=== PATIENT | male | born 1950 | race Caucasian/White ===

== ENCOUNTER 2018-10-11 12:36 | Emergency (ER) | payer OTHER, MEDICARE, SELFPAY ==
[2018-10-11 12:49] VITALS: BP 136/91; PULSE 85; RESP 22; TEMP 37.7; O2SAT 94; BMI 34.2
--- NOTE | 2018-10-11 12:53 | DI.RAD.S_ITS ---
PROCEDURE: XR CHEST 2V INDICATIONS: near syncope; fever, chills and vomiting for 24-48hrs TECHNIQUE: 2 views of the chest were acquired. COMPARISON: None. FINDINGS: Surgical changes and devices: None. Lungs and pleura: Lungs are clear. No pleural effusions or pneumothorax. Mediastinum: Mediastinal contours are normal. Heart size is normal. Bones and chest wall: No suspicious bony abnormalities. Soft tissues appear unremarkable. IMPRESSION: No acute cardiopulmonary disease process. Dictated by: Qing Burgos MD, PhD on 10/11/2018 at 13:40 Approved by: Qing Burgos MD, PhD on 10/11/2018 at 13:41
[2018-10-11] MEDS: SODIUM CHLORIDE 0.9% 1,000 ML 1000 ML IV (12:58)
[2018-10-11 13:08] VITALS: BP 141/72; PULSE 79; RESP 23; O2SAT 95
--- NOTE | 2018-10-11 13:10 | PC.NURSE ---
pt ambulated in stable gait from bathroom to WC and WC to bed after returning from Xray. Pt denies dizziness and reports feeling better at this time.
--- NOTE | 2018-10-11 13:22 | PC.NURSE ---
Pt denies chest pain, sob, urinary sx, abd pain, coughing, irregular hr, palpitation prior the near syncope. Spouse reports sudden onset of near syncope shortly after the zofran administration.
[2018-10-11 13:29] LABS: Bacteria Urine None Seen
[2018-10-11 13:34] LABS: Add Manual Diff / Slide Review NO; Basophils Absolute Auto 0 /uL (0-100); Basophils Percent Auto 0.2 % (0-2); Eosinophils Absolute Auto 0 /uL (0-450); Hematocrit 43.3 % (41-53); Hemoglobin 15.5 g/dL (13.5-17.5); Lymphocytes Absolute Auto 400 /uL (1100-4500); Lymphocytes Percent Auto 5.3 % (25-40); Mean Corpuscular HGB Conc 35.8 % (30-36); Mean Corpuscular Hemoglobin 32.6 PG (26-34); Mean Corpuscular Volume 91.1 fL (80-100); Monocytes Absolute Auto 600 /uL (0-900); Monocytes Percent Auto 9.7 % (3-14); Neutrophils Absolute Auto 5600 /uL (1500-7000); Neutrophils Percent Auto 84.8 % (50-75); Platelet Count 178 X10^3/uL (150-400); Red Blood Cell Count 4.75 X10^6/uL (4.5-5.9); Red Cell Distribution Width 12.9 % (11.6-14.8); White Blood Cell Count 6.6 X10^3/uL (4.5-11.0)
[2018-10-11 13:48] LABS: Alanine Aminotransferase 26 IU/L (21-72); Albumin Globulin Ratio 1.3 (1.0-2.8); Alkaline Phosphatase 61 U/L (38-126); Aspartate Aminotransferase 22 IU/L (17-59); BUN Creatinine Ratio 17.5 (6-22); Bilirubin Total 0.9 mg/dL (0.2-1.3); Blood Urea Nitrogen 14 mg/dL (9-20); Calcium 8.7 mg/dL (8.4-10.2); Carbon Dioxide 31 mmol/L (22-32); Chloride 98 mmol/L (98-107); Creatine Kinase 63 U/L (55-170); Estimated Glomerular Filt Rate > 60.0 mL/min (>60); Globulin 3.1 g/dL (1.7-4.1); Glucose 137 mg/dL (80-110); HEMOLYSIS < 15 (0-50); Potassium 4.1 mmol/L (3.4-5.1); Sodium 137 mmol/L (137-145); Total Protein 7.1 g/dL (6.3-8.2)
[2018-10-11 13:49] LABS: Amorphous Sediment Urine 1+; Culture Indicated Urine Cult Not Indicated; RBC Urine 1-5/HPF (0-5/HPF); Squamous Epithelial Cell Urine 0-1 /HPF (0-5/HPF); WBC Urine 0-1/HPF (0-5/HPF)
[2018-10-11 13:59] LABS: Troponin I < 0.012 ng/mL (0.01-0.034)
[2018-10-11 14:30] VITALS: BP 129/74; PULSE 87; RESP 21; O2SAT 92
--- NOTE | 2018-10-11 14:47 | PC.NURSE ---
Pt reports feeling well and ready to go home. Denies nausea at this time and reports able to get some rest while in ER.
[2018-10-11 15:00] VITALS: BP 136/79; PULSE 84; RESP 18; O2SAT 95
[2018-10-11 15:30] VITALS: BP 143/77; PULSE 87; RESP 21; O2SAT 94
--- NOTE | 2018-10-11 15:47 | ED.SYNCOPE ---
HPI - Syncope General Chief Complaint: Syncope Stated Complaint: Near Syncope Time Seen by Provider: 10/11/18 15:08 Source: patient and EMS Mode of arrival: EMS Limitations: no limitations History of Present Illness HPI narrative: This is a 68-year-old male comes to the emergency department with complaint of chills and nausea that started yesterday during the morning. 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 He states he would have waves of vomiting that would settle and then recur about 2 hours later. He has had normal bowel movements, no abdominal pain, no chest pain or shortness of breath. No diarrhea or constipation. His last bowel movement was yesterday morning. He has been having flatus regularly since. No urinary issues. He has not had similar symptoms in the past. He will little bit of mild back pain but he states once he got out of bed he had been lying down for a long time but felt better. Patient saw his primary care today, his 1st blood pressure was 120/70. They gave him a Zofran ODT and while he was standing he has felt lightheaded, he sat down sense that he was told that his eyes rolled back in his head. Patient's blood pressure was 95/70. He does have a history of hypertension, he did take his blood pressure medications today. I had a surgery with appendectomy. He does not smoke tobacco, occasional alcohol but none recently and no illicit. [facility] is his primary care but he was seen by Dr. Gould today. Related Data Home Medications Medication Instructions Recorded Confirmed aspirin 81 mg PO DAILY 10/11/18 10/11/18 clonidine HCl 0.3 mg PO BID 10/11/18 10/11/18 felodipine 10 mg PO DAILY 10/11/18 10/11/18 hydrochlorothiazide 25 mg PO DAILY 10/11/18 10/11/18 lisinopril 40 mg PO DAILY 10/11/18 10/11/18 rosuvastatin 5 mg PO QPM 10/11/18 10/11/18 Allergies Allergy/AdvReac Type Severity Reaction Status Date / Time No Known Drug Allergies Allergy Verified 10/11/18 12:57 Review of Systems Review of Systems ROS Unobtainable: All systems reviewed & are unremarkable except as noted in HPI and below Constitutional Denies body ache(s), Reports chills (yesterday), Denies fever(s), Denies headache(s), Denies lethargy and Denies weakness ENT Ears, Nose, Mouth, and Throat: Denies headache(s) Cardiovascular Denies chest pain, Reports syncope (or near syncope), Denies edema, Reports lightheadedness, Denies palpitations, Denies dyspnea and Denies dyspnea on exertion Respiratory Denies chest congestion, Denies cough, Denies dyspnea and Denies dyspnea on exertion Gastrointestinal Gastrointestinal: Denies abdominal pain, Denies change in bowel habits, Denies constipation, Denies diarrhea, Reports nausea (resolved now.), Reports vomiting (resolved now.) and Reports other (normal flatus) Genitourinary Denies hematuria, Denies flank pain, Denies urinary frequency, Denies urinary hesitancy, Denies urinary incontinence and Denies urinary urgency Musculoskeletal Reports back pain (mild, improved when he got out of bed) Integumentary/Breasts Denies rash Neurologic Reports syncope (or near syncope), Denies headache(s) and Denies weakness Endocrine Denies palpitations [facility] Medical History (Updated 10/11/18 @ 16:13 by Laurie Jenkins DO) HTN (hypertension) (Chronic) Surgical History (Updated 10/11/18 @ 16:05 by Laurie Jenkins DO) Hx of appendectomy (Chronic) Social History (Updated 10/11/18 @ 16:05 by Laurie Jenkins DO) Smoking Status: Never smoker alcohol intake: current substance use type: does not use Social History (Updated 10/11/18 @ 16:05 by Laurie Jenkins DO) Smoking Status: Never smoker alcohol intake: current substance use type: does not use Exam Narrative Exam Narrative: GEN: well nourished, well appearing male, alert and oriented x 3, patient appears to be in no acute distress. HEENT: Atraumatic, pupils are equal round reactive to light, extraocular movements are intact, nares are clear. Throat is clear without any exudates, erythema, tonsillar enlargement or uvular deviation HEART: Regular rate and rhythm without murmur, clicks, rubs. No carotid bruits, pulses are equal in upper and lower extremities LUNGS:Lungs clear to auscultation, no wheezes, rales, crackles, chest moves symmetrically ABD:bowel sounds normal, soft, non-tender, no guarding, rebound, rigidity, no masses noted, no hepatosplenomegaly :No CVA tenderness MSCL: Non-tender, no muscle atrophy, muscles strength 5/5 upper and lower extremities, full range of motion, normal gait NEURO:CN 2-12 intact, sensation normal. Initial Vital Signs Initial Vital Signs: Vital Signs Temperature 99.9 F H 10/11/18 12:49 Pulse Rate 85 10/11/18 12:49 Respiratory Rate 22 10/11/18 12:49 Blood Pressure 136/91 H 10/11/18 12:49 Pulse Oximetry 94 10/11/18 12:49 Course Orders Ordered: ED Orders 10/11/18 12:53 XR chest 2V Stat EKG-12 Lead Stat 10/11/18 13:20 Complete Blood Count AUTO DIFF Stat Comprehensive Metabolic Panel Stat Lipase Stat Troponin & CK Cardiac Panel Stat Urine Microscopic Stat Discontinued Medications Sodium Chloride (Normal Saline 0.9%) 1,000 mls @ 1,000 mls/hr IV BOLUS ONE Stop: 10/11/18 13:52 Last Infusion: 10/11/18 13:52 Dose: 0 mls/hr Infusion: 10/11/18 13:01 Dose: 1,000 mls/hr Admin: 10/11/18 12:58 Dose: 1,000 mls/hr Vital Signs - 8 hr 10/11/18 12:49 10/11/18 13:08 10/11/18 14:30 Temperature 99.9 F H Pulse Rate 85 79 87 Respiratory Rate 22 23 21 Blood Pressure 136/91 H Blood Pressure [Left Arm] 141/72 H 129/74 Pulse Oximetry 94 95 92 10/11/18 15:00 10/11/18 15:30 10/11/18 16:00 Temperature Pulse Rate 84 87 93 H Respiratory Rate 18 21 27 H Blood Pressure Blood Pressure [Left Arm] 136/79 143/77 H 154/84 H Pulse Oximetry 95 94 93 MDM - Syncope Lab Data Attestation: I reviewed the patient's lab results. Result diagrams: 10/11/18 13:20 10/11/18 13:20 Lab Results 10/11/18 10/11/18 10/11/18 Range/Units 13:20 13:20 13:20 WBC 6.6 (4.5-11.0) X10^3/uL RBC 4.75 (4.5-5.9) X10^6/uL Hgb 15.5 (13.5-17.5) g/dL Hct 43.3 (41-53) % MCV 91.1 (80-100) fL MCH 32.6 (26-34) PG MCHC 35.8 (30-36) % RDW 12.9 (11.6-14.8) % Plt Count 178 (150-400) X10^3/uL Neut % (Auto) 84.8 H (50-75) % Lymph % (Auto) 5.3 L (25-40) % [place] % (Auto) 9.7 (3-14) % Eos % (Auto) 0.0 L (2-4) % Baso % (Auto) 0.2 (0-2) % Neut # (Auto) 5600 (7556-5758) /uL Lymph # (Auto) 400 L (6964-2930) /uL [place] # (Auto) 600 (0-900) /uL Eos # (Auto) 0 (0-450) /uL Baso # (Auto) 0 (0-100) /uL Sodium 137 (137-145) mmol/L Potassium 4.1 (3.4-5.1) mmol/L Chloride 98 (98-107) mmol/L Carbon Dioxide 31 (22-32) mmol/L BUN 14 (9-20) mg/dL Creatinine 0.80 (0.66-1.25) mg/dL Estimated GFR > 60.0 (>60) mL/min BUN/Creatinine Ratio 17.5 (6-22) Glucose 137 H (80-110) mg/dL Calcium 8.7 (8.4-10.2) mg/dL Total Bilirubin 0.9 (0.2-1.3) mg/dL AST 22 (17-59) IU/L ALT 26 (21-72) IU/L Alkaline Phosphatase 61 (38-126) U/L Total Creatine Kinase 63 (55-170) U/L CK-MB (CK-2) TNP CK-MB (CK-2) Rel Index TNP Troponin I < 0.012 (0.01-0.034) ng/mL Total Protein 7.1 (6.3-8.2) g/dL Albumin 4.0 (3.5-5.0) g/dL Globulin 3.1 (1.7-4.1) g/dL Albumin/Globulin Ratio 1.3 (1.0-2.8) Lipase (23-300) U/L Urine RBC 1-5/hpf (0-5/HPF) Urine WBC 0-1/hpf (0-5/HPF) Ur Squamous Epith Cells 0-1 /hpf (0-5/HPF) Amorphous Sediment 1+ Urine Bacteria None seen (None) Ur Culture Indicated? Cult not indicated 10/11/18 Range/Units 13:20 WBC (4.5-11.0) X10^3/uL RBC (4.5-5.9) X10^6/uL Hgb (13.5-17.5) g/dL Hct (41-53) % MCV (80-100) fL MCH (26-34) PG MCHC (30-36) % RDW (11.6-14.8) % Plt Count (150-400) X10^3/uL Neut % (Auto) (50-75) % Lymph % (Auto) (25-40) % [place] % (Auto) (3-14) % Eos % (Auto) (2-4) % Baso % (Auto) (0-2) % Neut # (Auto) (6076-4563) /uL Lymph # (Auto) (5369-1597) /uL [place] # (Auto) (0-900) /uL Eos # (Auto) (0-450) /uL Baso # (Auto) (0-100) /uL Sodium (137-145) mmol/L Potassium (3.4-5.1) mmol/L Chloride (98-107) mmol/L Carbon Dioxide (22-32) mmol/L BUN (9-20) mg/dL Creatinine (0.66-1.25) mg/dL Estimated GFR (>60) mL/min BUN/Creatinine Ratio (6-22) Glucose (80-110) mg/dL Calcium (8.4-10.2) mg/dL Total Bilirubin (0.2-1.3) mg/dL AST (17-59) IU/L ALT (21-72) IU/L Alkaline Phosphatase (38-126) U/L Total Creatine Kinase (55-170) U/L CK-MB (CK-2) CK-MB (CK-2) Rel Index Troponin I (0.01-0.034) ng/mL Total Protein (6.3-8.2) g/dL Albumin (3.5-5.0) g/dL Globulin (1.7-4.1) g/dL Albumin/Globulin Ratio (1.0-2.8) Lipase 17 L (23-300) U/L Urine RBC (0-5/HPF) Urine WBC (0-5/HPF) Ur Squamous Epith Cells (0-5/HPF) Amorphous Sediment Urine Bacteria (None) Ur Culture Indicated? Point of Care Testing Glucose POC 143 Urine Dip Bedside Urine Glucose Negative Bedside Urine Bilirubin - Negative Bedside Urine Ketone ++ 40 Urine Specific [place] 1.015 Bedside Urine Occult Blood +/- Bedside Urine pH 6.5 Bedside Urine Protein +/- 15 Bedside Urine Urobilinogen +/- 1mg Bedside Urine Nitrite - Negative Bedside Urine Leukocytes - Negative Esterase Imaging Data Chest x-ray: Radiologist's impression: [place] [address] XRay Report Signed Patient: Amilcar Cantor RMR#: [id number] : 1950Acct:[id number] Age/Sex: 68 / MDate of Service: 10/11/18 Loc: ED Accession Number: [id number] Procedure: XR chest 2V Ordering Provider: Laurie Jenkins D.O. PROCEDURE: XR CHEST 2V INDICATIONS: near syncope; fever, chills and vomiting for 24-48hrs TECHNIQUE: 2 views of the chest were acquired. COMPARISON: None. FINDINGS: Surgical changes and devices: None. Lungs and pleura: Lungs are clear. No pleural effusions or pneumothorax. Mediastinum: Mediastinal contours are normal. Heart size is normal. Bones and chest wall: No suspicious bony abnormalities. Soft tissues appear unremarkable. IMPRESSION: No acute cardiopulmonary disease process. Dictated by: Qing Burgos MD, PhD on 10/11/2018 at 13:40 Approved by: Qing Burgos MD, PhD on 10/11/2018 at 13:41 ECG Data Attestation: I personally reviewed and interpreted this ECG as follows: Interpretation: Sinus rhythm rate of 77 MI 157 QRS of 90 QTC of 402. No ST elevation or depression appreciated. Patient has nonspecific change. MDM Narrative Medical decision making narrative: Patient is feeling much better here in the emergency department after L fluids. EKG shows no specific changes, lab work including CBC, CMP and cardiac enzymes is normal, patient does have a left shift. Glucose is 137 Chest x-ray shows no acute findings. patient's urine did show ketones, no nitrates or leuks, patient did have some her ability in and protein. Discussed with patient I suspect he was more dehydrated, we did discuss potentially could have had a reaction to the Zofran as it was given fairly close to when he had his response. Patient was able to ambulate in the department without any issues. Plan for DC home. Discharge Plan Departure Patient Disposition: Home Clinical Impression: Syncope Discharge Date/Time: 10/11/18 17:01 Interventions: ED Discharge Assessment Last Done: 10/11/18 16:59 Instructions: DI for Syncope in Adults (Fainting) Activity Restrictions/Additional Instructions: Follow-up with your primary care in the next 2-3 days for recheck if your symptoms have not completely resolved. You may continue home medications as prescribed. Make sure your drinking plenty of fluids. Return to the emergency department for worsening symptoms, fevers greater than 100.4 F, new chest pain, abdominal pain, shortness of breath, lightheadedness or passing-out, persistent vomiting, black or bloody stools or other new or concerning symptoms. Prescriptions: No Action clonidine HCl 0.3 mg tablet 0.3 mg PO BID RF: 0 aspirin 81 mg Tablet,Delayed Release (Dr/Ec) 81 mg PO DAILY RF: 0 felodipine 10 mg tablet extended release 24 hr 10 mg PO DAILY RF: 0 hydrochlorothiazide 25 mg tablet 25 mg PO DAILY RF: 0 lisinopril 40 mg tablet 40 mg PO DAILY RF: 0 rosuvastatin 5 mg tablet 5 mg PO QPM RF: 0 Referrals: Gary Calhoun MD [Primary Care Provider] -
--- NOTE | 2018-10-11 15:52 | ED_ITS ---
HPI - Syncope General Chief Complaint: Syncope Stated Complaint: Near Syncope Time Seen by Provider: 10/11/18 15:08 Source: patient and EMS Mode of arrival: EMS Limitations: no limitations History of Present Illness HPI narrative: This is a 68-year-old male comes to the emergency department with complaint of chills and nausea that started yesterday during the morning. 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 He states he would have waves of vomiting that would settle and then recur about 2 hours later. He has had normal bowel movements, no abdominal pain, no chest pain or shortness of breath. No diarrhea or constipation. His last bowel movement was yesterday morning. He has been having flatus regularly since. No urinary issues. He has not had similar symptoms in the past. He wi ll little bit of mild back pain but he states once he got out of bed he had been lying down for a long time but felt better. Patient saw his primary care today, his 1st blood pressure was 120/70. They gave him a Zofran ODT and while he was standing he has felt lightheaded, he sat down sense that he was told that his eyes rolled back in his head. Patient's blood pressure was 95/70. He does have a history of hypertension, he did take his blood pressure medications today. I had a surgery with appendectomy. He does not smoke tobacco, occasional alcohol but none recently and no illicit. [facility] is his primary care but he was seen by Dr. Gould today. Related Data Home Medications Medication Instructions Recorded Confirmed aspirin 81 mg PO DAILY 10/11/18 10/11/18 clonidine HCl 0.3 mg PO BID 10/11/18 10/11/18 felodipine 10 mg PO DAILY 10/11/18 10/11/18 hydrochlorothiazide 25 mg PO DAILY 10/11/18 10/11/18 lisinopril 40 mg PO DAILY 10/11/18 10/11/18 rosuvastatin 5 mg PO QPM 10/11/18 10/11/18 Allergies Allergy/AdvReac Type Severity Reaction Status Date / Time No Known Drug Allergies Allergy Verified 10/11/18 12:57 Review of Systems Review of Systems ROS Unobtainable: All systems reviewed & are unremarkable except as noted in HPI and below Constitutional Denies body ache(s), Reports chills (yesterday), Denies fever(s), Denies headache(s), Denies lethargy and Denies weakness ENT Ears, Nose, Mouth, and Throat: Denies headache(s) Cardiovascular Denies chest pain, Reports syncope (or near syncope), Denies edema, Reports li ghtheadedness, Denies palpitations, Denies dyspnea and Denies dyspnea on exertion Respiratory Denies chest congestion, Denies cough, Denies dyspnea and Denies dyspnea on exertion Gastrointestinal Gastrointestinal: Denies abdominal pain, Denies change in bowel habits, Denies constipation, Denies diarrhea, Reports nausea (resolved now.), Reports vomiting (resolved now.) and Reports other (normal flatus) Genitourinary Denies hematuria, Denies flank pain, Denies urinary frequency, Denies urinary hesitancy, Denies urinary incontinence and Denies urinary urgency Musculoskeletal Reports back pain (mild, improved when he got out of bed) Integumentary/Breasts Denies rash Neurologic Reports syncope (or near syncope), Denies headache(s) and Denies weakness Endocrine Denies palpitations [facility] Medical History (Updated 10/11/18 @ 16:13 by Laurie Jenkins DO) HTN (hypertension) (Chronic) Surgical History (Updated 10/11/18 @ 16:05 by Laurie Jenkins DO) Hx of appendectomy (Chronic) Social History (Updated 10/11/18 @ 16:05 by Laurie Jenkins DO) Smoking Status: Never smoker alcohol intake: current substance use type: does not use Social History (Updated 10/11/18 @ 16:05 by Laurie Jenkins DO) Smoking Status: Never smoker alcohol intake: current substance use type: does not use Exam Narrative Exam Narrative: GEN: well nourished, well appearing male, alert and oriented x 3, patient appears to be in no acute distress. HEENT: Atraumatic, pupils are equal round reactive to light, extraocular movements are intact, nares are clear. Throat is clear without any exudates, erythema, tonsillar enlargement or uvular deviation HEART: Regular rate and rhythm without murmur, clicks, rubs. No carotid bruits, pulses are equal in upper and lower extremities LUNGS:Lungs clear to auscultation, no wheezes, rales, crackles, chest moves symmetrically ABD:bowel sounds normal, soft, non-tender, no guarding, rebound, rigidity, no masses noted, no hepatosplenomegaly :No CVA tenderness MSCL: Non-tender, no muscle atrophy, muscles strength 5/5 upper and lower extremities, full range of motion, normal gait NEURO:CN 2-12 intact, sensation normal. Initial Vital Signs Initial Vital Signs: Vital Signs Temperature 99.9 F H 10/11/18 12:49 Pulse Rate 85 10/11/18 12:49 Respiratory Rate 22 10/11/18 12:49 Blood Pressure 136/91 H 10/11/18 12:49 Pulse Oximetry 94 10/11/18 12:49 Course Orders Ordered: ED Orders 10/11/18 12:53 XR chest 2V Stat EKG-12 Lead Stat 10/11/18 13:20 Complete Blood Count AUTO DIFF Stat Comprehensive Metabolic Panel Stat Lipase Stat Troponin & CK Cardiac Panel Stat Urine Microscopic Stat Discontinued Medications Sodium Chloride (Normal Saline 0.9%) 1,000 mls @ 1,000 mls/hr IV BOLUS ONE Stop: 10/11/18 13:52 Last Infusion: 10/11/18 13:52 Dose: 0 mls/hr Infusion: 10/11/18 13:01 Dose: 1,000 mls/hr Admin: 10/11/18 12:58 Dose: 1,000 mls/hr Vital Signs - 8 hr 10/11/18 12:49 10/11/18 13:08 10/11/18 14:30 Temperature 99.9 F H Pulse Rate 85 79 87 Respiratory Rate 22 23 21 Blood Pressure 136/91 H Blood Pressure [Left Arm] 141/72 H 129/74 Pulse Oximetry 94 95 92 10/11/18 15:00 10/11/18 15:30 10/11/18 16:00 Temperature Pulse Rate 84 87 93 H Respiratory Rate 18 21 27 H Blood Pressure Blood Pressure [Left Arm] 136/79 143/77 H 154/84 H Pulse Oximetry 95 94 93 MDM - Syncope Lab Data Attestation: I reviewed the patient's lab results. Result diagrams: 10/11/18 13:20 10/11/18 13:20 Lab Results 10/11/18 10/11/18 10/11/18 Range/Units 13:20 13:20 13:20 WBC 6.6 (4.5-11.0) X10^3/uL RBC 4.75 (4.5-5.9) X10^6/uL Hgb 15.5 (13.5-17.5) g/dL Hct 43.3 (41-53) % MCV 91.1 (80-100) fL MCH 32.6 (26-34) PG MCHC 35.8 (30-36) % RDW 12.9 (11.6-14.8) % Plt Count 178 (150-400) X10^3/uL Neut % (Auto) 84.8 H (50-75) % Lymph % (Auto) 5.3 L (25-40) % [place] % (Auto) 9.7 (3-14) % Eos % (Auto) 0.0 L (2-4) % Baso % (Auto) 0.2 (0-2) % Neut # (Auto) 5600 (2295-0250) /uL Lymph # (Auto) 400 L (8378-0829) /uL [place] # (Auto) 600 (0-900) /uL Eos # (Auto) 0 (0-450) /uL Baso # (Auto) 0 (0-100) /uL Sodium 137 (137-145) mmol/L Potassium 4.1 (3.4-5.1) mmol/L Chloride 98 (98-107) mmol/L Carbon Dioxide 31 (22-32) mmol/L BUN 14 (9-20) mg/dL Creatinine 0.80 (0.66-1.25) mg/dL Estimated GFR > 60.0 (>60) mL/min BUN/Creatinine Ratio 17.5 (6-22) Glucose 137 H (80-110) mg/dL Calcium 8.7 (8.4-10.2) mg/dL Total Bilirubin 0.9 (0.2-1.3) mg/dL AST 22 (17-59) IU/L ALT 26 (21-72) IU/L Alkaline Phosphatase 61 (38-126) U/L Total Creatine Kinase 63 (55-170) U/L CK-MB (CK-2) TNP CK-MB (CK-2) Rel Index TNP Troponin I < 0.012 (0.01-0.034) ng/mL Total Protein 7.1 (6.3-8.2) g/dL Albumin 4.0 (3.5-5.0) g/dL Globulin 3.1 (1.7-4.1) g/dL Albumin/Globulin Ratio 1.3 (1.0-2.8) Lipase (23-300) U/L Urine RBC 1-5/hpf (0-5/HPF) Urine WBC 0-1/hpf (0-5/HPF) Ur Squamous Epith Cells 0-1 /hpf (0-5/HPF) Amorphous Sediment 1+ Urine Bacteria None seen (None) Ur Culture Indicated? Cult not indicated 10/11/18 Range/Units 13:20 WBC (4.5-11.0) X10^3/uL RBC (4.5-5.9) X10^6/uL Hgb (13.5-17.5) g/dL Hct (41-53) % MCV (80-100) fL MCH (26-34) PG MCHC (30-36) % RDW (11.6-14.8) % Plt Count (150-400) X10^3/uL Neut % (Auto) (50-75) % Lymph % (Auto) (25-40) % [place] % (Auto) (3-14) % Eos % (Auto) (2-4) % Baso % (Auto) (0-2) % Neut # (Auto) (0065-9882) /uL Lymph # (Auto) (6482-6397) /uL [place] # (Auto) (0-900) /uL Eos # (Auto) (0-450) /uL Baso # (Auto) (0-100) /uL Sodium (137-145) mmol/L Potassium (3.4-5.1) mmol/L Chloride (98-107) mmol/L Carbon Dioxide (22-32) mmol/L BUN (9-20) mg/dL Creatinine (0.66-1.25) mg/dL Estimated GFR (>60) mL/min BUN/Creatinine Ratio (6-22) Glucose (80-110) mg/dL Calcium (8.4-10.2) mg/dL Total Bilirubin (0.2-1.3) mg/dL AST (17-59) IU/L ALT (21-72) IU/L Alkaline Phosphatase (38-126) U/L Total Creatine Kinase (55-170) U/L CK-MB (CK-2) CK-MB (CK-2) Rel Index Troponin I (0.01-0.034) ng/mL Total Protein (6.3-8.2) g/dL Albumin (3.5-5.0) g/dL Globulin (1.7-4.1) g/dL Albumin/Globulin Ratio (1.0-2.8) Lipase 17 L (23-300) U/L Urine RBC (0-5/HPF) Urine WBC (0-5/HPF) Ur Squamous Epith Cells (0-5/HPF) Amorphous Sediment Urine Bacteria (None) Ur Culture Indicated? Point of Care Testing Glucose POC 143 Urine Dip Bedside Urine Glucose Negative Bedside Urine Bilirubin - Negative Bedside Urine Ketone ++ 40 Urine Specific [place] 1.015 Bedside Urine Occult Blood +/- Bedside Urine pH 6.5 Bedside Urine Protein +/- 15 Bedside Urine Urobilinogen +/- 1mg Bedside Urine Nitrite - Negative Bedside Urine Leukocytes - Negative Esterase Imaging Data Chest x-ray: Radiologist's impression: [place] [address] XRay Report Signed Patient: Amilcar Cantor RMR#: [id number] : 1950Acct:[id number] Age/Sex: 68 / MDate of Service: 10/11/18 Loc: ED Accession Number: [id number] Procedure: XR chest 2V Ordering Provider: Laurie Jenkins D.O. PROCEDURE: XR CHEST 2V INDICATIONS: near syncope; fever, chills and vomiting for 24-48hrs TECHNIQUE: 2 views of the chest were acquired. COMPARISON: None. FINDINGS: Surgical changes and devices: None. Lungs and pleura: Lungs are clear. No pleural effusions or pneumothorax. Mediastinum: Mediastinal contours are normal. Heart size is normal. Bones and chest wall: No suspicious bony abnormalities. Soft tissues appear unremarkable. IMPRESSION: No acute cardiopulmonary disease process. Dictated by: Qing Burgos MD, PhD on 10/11/2018 at 13:40 Approved by: Qing Burgos MD, PhD on 10/11/2018 at 13:41 ECG Data Attestation: I personally reviewed and interpreted this ECG as follows: Interpretation: Sinus rhythm rate of 77 [place] 157 QRS of 90 QTC of 402. No ST elevation or depression appreciated. Patient has nonspecific change. MDM Narrative Medical decision making narrative: Patient is feeling much better here in the emergency department after L fluids. EKG shows no specific changes, lab work including CBC, CMP and cardiac enzymes is normal, patient does have a left shift. Glucose is 137 Chest x-ray shows no acute findings. patient's urine did show ketones, no nitrates or leuks, patient did have some her ability in and protein. Discussed with patient I suspect he was more dehydrated, we did discuss potentially could have had a reaction to the Zofran as it was given fairly close to when he had his response. Patient was able to ambulate in the department without any issues. Plan for DC home. Discharge Plan Departure Patient Disposition: Home Clinical Impression: Syncope Discharge Date/Time: 10/11/18 17:01 Interventions: ED Discharge Assessment Last Done: 10/11/18 16:59 Instructions: DI for Syncope in Adults (Fainting) Activity Restrictions/Additional Instructions: Follow-up with your primary care in the next 2-3 days for recheck if your symptoms have not completely resolved. You may continue home medications as prescribed. Make sure your drinking plenty of fluids. Return to the emergency department for worsening symptoms, fevers greater than 100.4 F, new chest pain, abdominal pain, shortness of breath, lightheadedness or passing-out, persistent vomiting, black or bloody stools or other new or concerning symptoms. Prescriptions: No Action clonidine HCl 0.3 mg tablet 0.3 mg PO BID RF: 0 aspirin 81 mg Tablet,Delayed Release (Dr/Ec) 81 mg PO DAILY RF: 0 felodipine 10 mg tablet extended release 24 hr 10 mg PO DAILY RF: 0 hydrochlorothiazide 25 mg tablet 25 mg PO DAILY RF: 0 lisinopril 40 mg tablet 40 mg PO DAILY RF: 0 rosuvastatin 5 mg tablet 5 mg PO QPM RF: 0 Referrals: Gary Calhoun MD [Primary Care Provider] -
[2018-10-11 16:00] VITALS: BP 154/84; PULSE 93; RESP 27; O2SAT 93
[2018-10-11 16:06] LABS: Lipase 17 U/L (23-300)
--- NOTE | 2018-10-11 16:16 | PC.NURSE ---
Walked with patient around ER and he stated he felt better and no symptoms
== END 2018-10-11 17:01 | disposition home or self-care (01) ==
PROVIDERS: Emergency Provider Emergency Medicine; Family Provider Family Medicine; PCP Family Medicine
DX: R55 Syncope and collapse (principal)
CPT/HCPCS: 36415; 71046; 80053; 81003; 81015; 82550; 83690; 84484; 85025; 93005; 96360; 99285

== ENCOUNTER 2020-03-15 09:33 | Emergency (ER) | payer OTHER, MEDICARE, SELFPAY ==
[2020-03-15 09:43] VITALS: BP 168/82; PULSE 85; RESP 18; TEMP 36.9; O2SAT 97; BMI 33.5
--- NOTE | 2020-03-15 10:21 | ED_ITS ---
HPI - Extremity Problem General Chief complaint: Extremity Problem,Nontraumatic Stated complaint: knee pain cant put weight on it Time Seen by Provider: 03/15/20 10:21 Source: patient Mode of arrival: Ambulatory Limitations: no limitations History of Present Illness HPI Narrative: This is a 69-year-old male who comes into the emergency department complaint of right knee pain. Patient states he has had issues on a nd off in the past. Proximally 9 months ago he was seen by orthopedic surgery in [place], patient states he had an injection he believes it was a steroid was helpful for about 2 weeks and then was not help from from that point on. He states he was told to return if his symptoms continued but patient did not return. 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 About 9 months ago he had quite a bit of pain, he had x-rays but no additional imaging. And had several months of knee pain except for short period immediately after the steroid injection. He has not had any fevers, no redness, no warmth to the knee. He does feel like it is more swollen than the left knee. He denies any numbness or tingling. He denies any acute trauma to the knee. 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 He does take several medications for blood pressure and dyslipidemia. He did take his home bp meds today. Related Data Home Medications Medication Instructions Recorded Confirmed aspirin 81 mg PO DAILY 10/11/18 10/11/18 clonidine HCl 0.3 mg PO BID 10/11/18 10/11/18 felodipine 10 mg PO DAILY 10/11/18 10/11/18 hydrochlorothiazide 25 mg PO DAILY 10/11/18 10/11/18 lisinopril 40 mg PO DAILY 10/11/18 10/11/18 rosuvastatin 5 mg PO QPM 10/11/18 10/11/18 Allergies Allergy/AdvReac Type Severity Reaction Status Date / Time No Known Drug Allergies Allergy Verified 10/11/18 12:57 Review of Systems Review of Systems ROS Unobtainable: All systems reviewed & are unremarkable except as noted in HPI and below Patient History Medical History HTN (hypertension) (Chronic) Surgical History Hx of appendectomy (Chronic) Social History Smoking Status: Never smoker alcohol intake: current substance use type: does not use Smoking Status: Never smoker alcohol intake frequency: a few times a week Substance Use Type: does not use Exam Narrative Exam Narrative: GENERAL: Alert and oriented x three, obese, well-appearing male in mild distress HEENT: Head normocephalic, atraumatic, EOMI, pupils reactive, face symmetric, moist mucous membranes NECK: Supple, full range of motion CARDIOVASCULAR: Regular rate and rhythm without murmurs, rubs or gallops. RESPIRATORY: Breath sounds equal bilaterally, no wheezes rales or rhonchi. ABDOMEN: Soft, nontender. Normoactive bowel sounds all 4 quadrants. No guarding or rebound, rigidity, no mass EXTREMITIES: Normal range of motion but increased pain with movement, no clubbing. Mild edema right knee. No warmth or erythema is noted. Patient has discomfort with varus movement and palpation over the medial collateral ligament, no joint laxity is appreciated, compression test is negative. 2+ dorsalis pedis. Normal sensation throughout. Neurovascularly intact NEUROLOGICAL: Cranial nerves II through XII grossly intact. Moving all extremities SKIN: Warm, dry, no petechiae, no rashes or lesions. Initial Vital Signs Initial Vital Signs: Vital Signs Temperature 98.5 F 03/15/20 09:43 Pulse Rate 85 03/15/20 09:43 Respiratory Rate 18 03/15/20 09:43 Blood Pressure 168/82 H 03/15/20 09:43 Pulse Oximetry 97 03/15/20 09:43 Course Orders Ordered: ED Orders 03/15/20 10:31 XR knee RT 3V Stat Vital Signs Vital signs: Vital Signs - 8 hr 03/15/20 11:32 Pulse Rate 88 Respiratory Rate 16 Blood Pressure 160/82 H Pulse Oximetry 99 MDM - Extremity (Nontraumatic) Imaging Data Extremity x-ray #1: Attestation: I personally reviewed and interpreted this imaging study as follows: My Impression: no fx noted, degenerative changes seen. Radiologist's Impression: [address] [address] XRay Report Signed Patient: Amilcar Cantor RMR#: [id number] : 1950Acct:[id number] Age/Sex: 69 / MDate of Service: 03/15/20 Loc: ED Accession Number: [id number] Procedure: XR knee RT 3V Ordering Provider: Laurie Jenkins D.O. PROCEDURE: XR KNEE RT 3V INDICATIONS: knee pain, acute on chronic. TECHNIQUE: 3 views of the knee were acquired. COMPARISON: None. FINDINGS: Bones: No fractures or dislocations. Mild tricompartmental osteoarthritis is seen. No patellar subluxation. No suspicious bony lesions. Soft tissues: Small suprapatellar joint effusion is noted.. No suspicious soft tissue calcifications. IMPRESSION: 1. No acute right knee fracture or dislocation. Mild tricompartmental osteoarthritis. 2. Small suprapatellar joint effusion. Dictated by: Micheal Cochran M.D. on 03/15/2020 at 10:46 Approved by: Micheal Cochran M.D. on 03/15/2020 at 10:48 Discharge Plan Departure Patient Disposition: Home Clinical Impression: Knee pain, right Qualifiers: Chronicity: unspecified Qualified Code(s): M25.561 - Pain in right knee Discharge Date/Time: 03/15/20 11:32 Instructions: DI for Knee Pain Activity Restrictions/Additional Instructions: Follow-up with your orthopedic surgeon in the next 1-2 week, if you prefer an additional referral has been given. I would recommend weight-bearing as tolerated. You may take ibuprofen up to 800 mg every 8 hours as needed for pain but I recommend starting with 400 or 600 mg. To the ER for fevers, warmth or redness to the knee, rapidly worsening swelling, fevers greater 100.4 F, pain radiating up the leg or new color changes to the lower extremity such as pallor or blue discoloration, new numbness, tingling or weakness. Prescriptions: No Action clonidine HCl 0.3 mg tablet 0.3 mg PO BID RF: 0 aspirin 81 mg Tablet,Delayed Release (Dr/Ec) 81 mg PO DAILY RF: 0 felodipine 10 mg tablet extended release 24 hr 10 mg PO DAILY RF: 0 hydrochlorothiazide 25 mg tablet 25 mg PO DAILY RF: 0 lisinopril 40 mg tablet 40 mg PO DAILY RF: 0 rosuvastatin 5 mg tablet 5 mg PO QPM RF: 0 Referrals: Gary Calhoun MD [Primary Care Provider] - Carlos Kapoor MD [Physician] -
--- NOTE | 2020-03-15 10:31 | DI.RAD.S_ITS ---
PROCEDURE: XR KNEE RT 3V INDICATIONS: knee pain, acute on chronic. TECHNIQUE: 3 views of the knee were acquired. COMPARISON: None. FINDINGS: Bones: No fractures or dislocations. Mild tricompartmental osteoarthritis is seen. No patellar subluxation. No suspicious bony lesions. Soft tissues: Small suprapatellar joint effusion is noted.. No suspicious soft tissue calcifications. IMPRESSION: 1. No acute right knee fracture or dislocation. Mild tricompartmental osteoarthritis. 2. Small suprapatellar joint effusion. Dictated by: Micheal Cochran M.D. on 03/15/2020 at 10:46 Approved by: Micheal Cochran M.D. on 03/15/2020 at 10:48
[2020-03-15 11:32] VITALS: BP 160/82; PULSE 88; RESP 16; O2SAT 99
== END 2020-03-15 11:32 | disposition home or self-care (01) ==
PROVIDERS: Emergency Provider Emergency Medicine; Family Provider Family Medicine; PCP Family Medicine
DX: M25.561 Pain in right knee (principal); I10 Essential (primary) hypertension
CPT/HCPCS: 73562; 99283

== ENCOUNTER → 2020-10-15 14:41 | Outpatient (CLI) | payer OTHER, MEDICARE, SELFPAY ==
--- NOTE | 2020-10-15 | DI.ECHO.S_ITS ---
[place] +---------+ [facility] +---------+ : : [address] : : : : [id number] : : : : Phone: [phone]+ Echocardiogram Report + + :Name: DENY MERCEDES Study Date: 10/15/2020 Height: 71 in : :[facility] ReadingLocation: Weight: 245 lb : : Gender: Male BSA: 2.3 m2 : :: 1950 Age: 70 yrs BP: 154/87 mmHg: :Reason For Study: Aortic valve regurgitation : :Ordering Physician: Edouard : :Ata Rankin Performed By: Bright Shore : :Referring: EDOUARD RANKIN : + + Interpretation Summary 1) Normal left ventricular thickness, size, wall motion, and systolic function (EF 55-60%). 2) Upper normal right ventricular size with normal function. 3) Mild to moderate aortic regurgitation present. 4) Hypertension present during the study (BP 154/87mmHg). 5) Compared to the Echo done 11/28/2016, no significant change in cardiac structure. Procedure: A two-dimensional transthoracic echocardiogram with color flow and Doppler was performed. The study quality was technically adequate. Comparison is made with the echocardiogram of 11/28/2016. The patient was in sinus rhythm with heart rates between 59-68 bpm during the exam. Left Ventricle: The left ventricle is normal in size and wall thickness. Left ventricular systolic function is normal. The ejection fraction is estimated to be 55-60%. There are no focal wall motion abnormalities. Diastolic parameters suggest probable normal left ventricular diastolic function and normal filling pressures. Right Ventricle: The right ventricle is normal in size and function. Atria: Both atria are normal in size. There is no Doppler evidence for an interatrial shunt. Mitral Valve: The mitral valve is normal in structure and function. There is trace mitral regurgitation. Aortic Valve: The aortic valve is normal in structure and function. There is no aortic valve stenosis. There is mild to moderate aortic regurgitation. Tricuspid Valve: The tricuspid valve is normal in structure and function. There is mild tricuspid regurgitation. Right ventricular systolic pressure is estimated to be 28 mmHg plus the clinically estimated CVP which cannot be estimated on this exam. Pulmonic Valve: The pulmonic valve is normal in structure and function. There is mild pulmonic regurgitation. Great Vessels: The aortic root is normal size. The dimensions of the ascending aorta are normal. The inferior vena cava was not visualized. Pericardium/ Pleura There is no pericardial effusion. There is no pleural effusion. MMode/2D Measurements & Calculations LVIDd: 5.6 cm LVOT diam: 2.3 cm LVIDs: 3.8 cm Ao root diam: 3.4 cm FS: 31.2 % asc Aorta Diam: 3.3 cm IVSd: 0.88 cm LVPWd: 0.80 cm LV lovelace. diameter/BSA (cm/m^2): 2.4 LV sys. diameter/BSA (cm/m^2): 1.7 LA A2 area: 20.8 cm2 RA long axis: 4.7 cm LA A4 area: 23.0 cm2 RA area: 14.5 cm2 LA length (vol): 5.8 cm RA vol: 38.2 ml LA vol: 70.4 ml RA : 16.6 ml/m2 LA vol index: 30.6 ml/m2 RVD1 (basal): 3.9 cm Doppler Measurements & Calculations Ao V2 max: 167.8 cm/sec LVOT Max Blair: 103.9 cm/sec Ao V2 mean: 115.7 cm/sec LV V1 max P.3 mmHg Ao max P.3 mmHg LV V1 VTI: 25.7 cm Ao mean P.1 mmHg LEOPOLDO(I,D): 3.1 cm2 Ao V2 VTI: 35.0 cm LEOPOLDO(V,D): 2.6 cm2 sev ratio: 0.74 LEOPOLDO indexed to BSA (cm^2/m^2): 1.4 AI P1/2t: 514.4 msec AI dec slope: 247.1 cm/sec2 MV E max blair: 107.0 cm/sec TR max blair: 264.9 cm/sec MV A max blair: 123.6 cm/sec TR max P.1 mmHg MV E/A: 0.87 PA V2 max: 117.0 cm/sec Med Peak E' Blair: 8.6 cm/sec PA V2 mean: 84.5 cm/sec E/E' med: 12.4 PA mean P.2 mmHg Lat Peak E' Blair: 8.2 cm/sec PA pr(Accel): 41.6 mmHg E/E' lat: 13.0 E/e' average: 12.7 MV dec time: 0.28 sec SV(LVOT): 109.0 ml Reading Physician:04:10 PM
== END ==
PROVIDERS: Family Provider Family Medicine; PCP Family Medicine; Referring Provider Internal Medicine Cardiovascular Disease; Visit Provider Internal Medicine Cardiovascular Disease
DX: I08.2 Rheumatic disorders of both aortic and tricuspid valves (principal)
CPT/HCPCS: 93306

== ENCOUNTER 2021-10-10 04:05 | Emergency (ER) | payer OTHER, MEDICARE, SELFPAY ==
--- NOTE | 2021-10-10 07:02 | PC.NURSE ---
Pt arrived to ED at 0415, during computer downtime, discharged while system remained down, see downtime paper charting.
--- NOTE | 2021-10-10 07:04 | ED_ITS ---
HPI - General Adult General Stated complaint: throat obstruction History of Present Illness HPI narrative: 71M non smoker with history of hypertension presents with a chief complaint of irritation in the back of his throat and a sensation that something just isn't right.? When he lays flat he feels like something is in the back of his throat. ?He has had some nasal congestion and increased drainage but denies any pain whatsoever.? He has no chest pain or shortness of breath.? He has no fever or chills.? He denies any nausea, vomiting or diarrhea. Related Data Home Medications Medication Instructions Recorded Confirmed aspirin 81 mg tablet,delayed 81 mg PO DAILY 10/11/18 10/11/18 release clonidine HCl 0.3 mg tablet 0.3 mg PO BID 10/11/18 10/11/18 felodipine 10 mg tablet,extended 10 mg PO DAILY 10/11/18 10/11/18 release 24 hr hydrochlorothiazide 25 mg tablet 25 mg PO DAILY 10/11/18 10/11/18 lisinopril 40 mg tablet 40 mg PO DAILY 10/11/18 10/11/18 rosuvastatin 5 mg tablet 5 mg PO QPM 10/11/18 10/11/18 Allergies Allergy/AdvReac Type Severity Reaction Status Date / Time No Known Drug Allergies Allergy Verified 10/11/18 12:57 Review of Systems Review of Systems Narrative: GENERAL: Denies chills, fatigue, malaise, fever, sweats. HEENT: ?See HPI RESPIRATORY: Denies dyspnea, cough, wheezing, hemoptysis, sputum. CARDIOVASCULAR: Denies chest pain, palpitations, orthopnea, edema, GASTROINTESTINAL: Denies nausea, vomiting, abdominal pain, diarrhea, constip ation, melena. : Denies dysuria, frequency, incontinence, hematuria, urinary retention. MUSCULOSKELETAL: denies weakness, joint pain, or bony pain SKIN: Denies rash, skin lesions, or other NEUROLOGIC: Denies weakness, headache, numbness, change in speech, confusion, seizures, incoordination. PSYCHIATRIC: No concerning psychosocial issues. 12 point review of systems is negative except for those stated above Patient History Medical History (Updated 10/10/21 @ 07:09 by Matthew Sebastian DO) HTN (hypertension) Surgical History Hx of appendectomy Social History Smoking Status: Never smoker alcohol intake: current substance use type: does not use Smoking Status: Never smoker alcohol intake frequency: a few times a week Substance Use Type: does not use Exam Narrative Exam Narrative: GENERAL: [71 ] year old patient appears stated age. Well-developed patient, in mild distress. HEAD: Atraumatic. Normocephalic. EYES: Pupils equal round and reactive. Extraocular motions intact. No scleral icterus. No injection or drainage. ENT: Nose without bleeding, purulent drainage. ?Uvula moderately swollen with clear posterior pharyngeal drainage, no lymphadenopathy NECK: Trachea midline. Non tender. ?No tender lymphadenopathy CARDIOVASCULAR: Regular rate and rhythm without murmurs, gallops, or rubs. RESPIRATORY: Clear to auscultation. Breath sounds equal bilaterally. No wheezes, rales, or rhonchi.? GASTROINTESTINAL: Abdomen soft, non-tender, nondistended. EXTREMITIES: No edema or joint tenderness. BACK: Nontender without deformity or crepitance. No flank tenderness. NEURO: AOx3. SKIN: No rash or erythema of visible areas Medical Decision Making MDM Narrative Medical decision making narrative: Well-appearing gentleman in no acute distress with reassuring history and physical exam. Slightly edematous uvula likely due to posterior pharyngeal drainage, strep negative. Patient has no pain, difficulty swallowing or systemic findings. Patient given Decadron and encouraged to use [id number] antihistamines. Return precautions discussed and questions answered to his apparent satisfaction Discharge Plan Departure Patient Disposition: Home Clinical Impression: Uvulitis Activity Restrictions/Additional Instructions: *You have been diagnosed with [uvulitis] *What to do: *Please continue to take your regular medications as directed. [ ] New medication prescriptions sent to your pharmacy: [ ] [ ] New medication written as a paper prescription [ x] No new medications given *Please follow up with your primary care provider in 2-3 days, call for an appointment. Let them know you were seen in the Emergency Department and that we ask that you be seen in follow up. We will electronically transmit a record of today's note if your PCP is in our system *If you do not have a primary care provider please contact the [facility] Resource line at [phone]. They will ask some questions about your medical history and help get you set up with a doctor in the community. *Return to Emergency Department if you should have any new, worsening or concerning symptoms, such as [fever greater than 101 F, shaking chills, worsening pain, persistent vomiting or other bothersome symptoms] . Prescriptions: No Action clonidine HCl 0.3 mg tablet 0.3 mg PO BID Label Comments: TAKE 1 TABLET BY MOUTH TWICE DAILY aspirin 81 mg Tablet,Delayed Release (Dr/Ec) 81 mg PO DAILY felodipine 10 mg tablet extended release 24 hr 10 mg PO DAILY Label Comments: TAKE 1 TABLET BY MOUTH ONCE DAILY hydrochlorothiazide 25 mg tablet 25 mg PO DAILY Label Comments: TAKE 1 TABLET BY MOUTH ONCE DAILY lisinopril 40 mg tablet 40 mg PO DAILY rosuvastatin 5 mg tablet 5 mg PO QPM Referrals: Gary Calhoun MD [Primary Care Provider] -
[2021-10-10 08:29] LABS: Strep Grp A by PCR Rapid Negative (Negative)
== END 2021-10-10 05:00 | disposition home or self-care (01) ==
PROVIDERS: Emergency Provider Emergency Medicine; Family Provider Family Medicine; PCP Family Medicine
DX: K12.2 Cellulitis and abscess of mouth (principal)
CPT/HCPCS: 87651; 99281; 99282; J1100

== ENCOUNTER 2022-08-06 08:59 | Day surgery (SDC) | payer OTHER, MEDICARE, SELFPAY ==
[2022-08-06 09:56] VITALS: BP 146/74; PULSE 77; RESP 16; TEMP 36.9; O2SAT 100; BMI 27.1
[2022-08-06] MEDS: LACTATED RINGERS 1,000 ML 42 ML IV (10:05)
--- NOTE | 2022-08-06 11:16 | P.OP.COLON_ITS ---
Operative Date/Time/Diagnoses Date of procedure: 08/06/22 Pre-op diagnosis: See indication and findings Procedure & Clinicians Study performed: Colonoscopy Indications: Screening Surgeon: Wilbert Smith Procedure Notes Procedure in detail: After informed consent was obtained the patient was placed in left lateral d ecubitus position. The video colonoscope was placed in the rectum slowly advanced to distal transverse colon. Preparation was good. On slow withdrawal mucosa was carefully examined. The scope was removed. The patient tolerated procedure well. Blood loss none Complications none Sedation mac Findings 1. Poor prep with significant semi formed stool the mostly liquid. Unable to cleans enough to get a good view 2. Extensive left-sided diverticulosis with large diverticula 3. Otherwise negative colonoscopy to distal transverse colon He will be rescheduled with a 2 day preparation.
--- NOTE | 2022-08-06 11:16 | PM.PREOP ---
Pre-operative Note COVID-19 COVID-19 status: Negative Interval Note History & Physical reviewed/Exam performed by Physician: Yes Changes to H&P: No ASA Class (for procedural sedation): II
[2022-08-06 11:44] VITALS: BP 110/68; PULSE 65; RESP 18; TEMP 36.2; O2SAT 97
[2022-08-06 11:49] VITALS: BP 119/74; PULSE 65; RESP 12; O2SAT 98
[2022-08-06 11:54] VITALS: BP 120/72; PULSE 78; RESP 17; O2SAT 98
[2022-08-06 11:59] VITALS: BP 130/75; PULSE 61; RESP 14; O2SAT 98
[2022-08-06 12:01] VITALS: BP 137/78; PULSE 63; RESP 16; O2SAT 97
== END 2022-08-06 12:13 | disposition home or self-care (01) ==
PROVIDERS: Family Provider Family Medicine; PCP Internal Medicine; Referring Provider Internal Medicine Gastroenterology; Visit Provider Internal Medicine Gastroenterology
PROC: 0DJD8ZZ Inspection of Lower Intestinal Tract, Via Natural or Artificial Opening Endoscopic (ICD-10-PCS; CPT 45378; principal; 2022-08-06 10:30)
DX: Z12.11 Encounter for screening for malignant neoplasm of colon (principal); K57.30 Diverticulosis of large intestine without perforation or abscess without bleeding; Z53.09 Procedure and treatment not carried out because of other contraindication
CPT/HCPCS: 45378; J2704

== ENCOUNTER 2022-10-04 11:50 | Inpatient (IN) | payer OTHER, MEDICARE, SELFPAY ==
[2022-10-04] VITALS (14 sets, daily range): BP systolic 116–180; BP diastolic 58–80; PULSE 82–121; RESP 17–29; TEMP 36.9–37.8; O2SAT 94–98; BMI 27.1
--- NOTE | 2022-10-04 12:28 | DI.RAD.S_ITS ---
PROCEDURE: XR CHEST 1V INDICATIONS: chest pain TECHNIQUE: One view of the chest was acquired. COMPARISON: [facility], CR, XR CHEST 2V, 10/11/2018, 12:55. FINDINGS: Surgical changes and devices: None. Lungs and pleura: Right lower lobe opacity. There is likely small pleural effusion on the right. No pneumothorax. Mediastinum: Mediastinal contours appear normal. Heart size is normal. Bones and chest wall: No suspicious bony lesions. Overlying soft tissues appear unremarkable. IMPRESSION: Findings most consistent with right basilar pneumonia with adjacent pleural effusion. Recommend clinical correlation and follow-up to resolution. and follow-up to resolution. Dictated by: Kris Giordano D.O. on 10/04/2022 at 12:06 Approved by: Kris Giordano D.O. on 10/04/2022 at 12:07
[2022-10-04 13:17] LABS: INR 1.6 (0.9-1.3); Prothrombin Time 18.8 SECONDS (10.1-12.7)
[2022-10-04 13:18] LABS: Add Manual Diff / Slide Review YES; Hematocrit 45.4 % (41-53); Hemoglobin 15.5 g/dL (13.5-17.5); Mean Corpuscular HGB Conc 34.1 % (30-36); Mean Corpuscular Volume 93.8 fL (80-100); Platelet Count 191 X10^3/uL (150-400); Red Blood Cell Count 4.84 X10^6/uL (4.5-5.9); Red Cell Distribution Width 13.8 % (11.6-14.8); White Blood Cell Count 17.9 X10^3/uL (4.5-11.0)
[2022-10-04 13:20] LABS: PTT Partial Thromboplastin Tim 32 SECONDS (26-36)
[2022-10-04 13:23] LABS: Lactate (Lactic Acid) 2.3 mmol/L (0.7-2.1)
[2022-10-04 13:28] LABS: Alanine Aminotransferase 29 IU/L (<50); Albumin 4.2 g/dL (3.5-5.0); Albumin Globulin Ratio 1.3 (1.0-2.8); Alkaline Phosphatase 48 U/L (38-126); Aspartate Aminotransferase 25 IU/L (17-59); Bilirubin Total 1.8 mg/dL (0.2-1.3); Blood Urea Nitrogen 24 mg/dL (9-20); Carbon Dioxide 32 mmol/L (22-32); Chloride 95 mmol/L (98-107); Creatine Kinase 29 U/L (55-170); Estimated Glomerular Filt Rate > 60 mL/min (>60); Globulin 3.2 g/dL (1.7-4.1); Glucose 158 mg/dL (80-110); HEMOLYSIS 24 (0-50); Lipase 26 U/L (23-300); Potassium 3.9 mmol/L (3.4-5.1); Sodium 133 mmol/L (137-145); Total Protein 7.4 g/dL (6.3-8.2)
[2022-10-04 13:35] LABS: Neutrophils Absolute Manual 17363 /uL (3000-5900); RBC Morphology Normal Morphology; Total Cells Counted 100
[2022-10-04 13:37] LABS: Troponin I 0.062 ng/mL (0.01-0.034)
--- NOTE | 2022-10-04 13:59 | ED.SOB ---
HPI - SOB/Dyspnea General Chief Complaint: Weakness Stated Complaint: Blood in vomit, High HR, Sent by [facility] Time Seen by Provider: 10/04/22 13:58 Source: patient Mode of arrival: Ambulatory Limitations: no limitations History of Present Illness HPI Narrative: Patient is a 72-year-old male history of hypertension presenting today from walk-in clinic for hemoptysis and tachycardia. He actually reports that he was feeling well this week he was actually getting his camper ready to go camping however last night he developed body aches sweats chills and dry heaving. He then reports that he was coughing up half-dollar size of bright red blood. He is not on anticoagulation but does take a baby aspirin daily. Denies any abdominal pain. He reports some shortness of breath with exertion no significant peripheral edema. Related Data Home Medications Medication Instructions Recorded Confirmed aspirin 81 mg tablet,delayed 81 mg PO DAILY 10/11/18 10/04/22 release clonidine HCl 0.3 mg tablet 0.3 mg PO BID 10/11/18 10/04/22 felodipine 10 mg tablet,extended 10 mg PO DAILY 10/11/18 10/04/22 release 24 hr hydrochlorothiazide 25 mg tablet 25 mg PO DAILY 10/11/18 10/04/22 lisinopril 40 mg tablet 40 mg PO DAILY 10/11/18 10/04/22 rosuvastatin 5 mg tablet 5 mg PO QPM 10/11/18 10/04/22 amlodipine 10 mg tablet 10 mg PO DAILY 10/04/22 10/04/22 Allergies Allergy/AdvReac Type Severity Reaction Status Date / Time No Known Drug Allergies Allergy Verified 10/04/22 12:23 Review of Systems Review of Systems ROS Unobtainable: All systems reviewed & are unremarkable except as noted in HPI and below Patient History Medical History (Updated 10/04/22 @ 17:30 by Debbi Fox DO) HTN (hypertension) Surgical History Hx of appendectomy Social History household members: spouse Smoking Status: Never smoker alcohol intake: current substance use type: does not use Smoking Status: Never smoker alcohol intake frequency: a few times a week Substance Use Type: does not use Exam Initial Vital Signs Initial Vital Signs: Vital Signs Temperature 98.5 F 10/04/22 12:23 Pulse Rate 121 H 10/04/22 12:23 Respiratory Rate 22 10/04/22 12:23 Blood Pressure 137/80 10/04/22 12:23 Pulse Oximetry 95 10/04/22 12:23 Oxygen Delivery Method Room Air 10/04/22 12:23 GENERAL: Alert 72-year-old male and in no acute distress. HEENT: Head atraumatic,EOMI, pupils reactive, face symmetric, moist mucous membranes CARDIOVASCULAR: Regular rate and rhythm without murmurs, rubs or gallops. RESPIRATORY: Breath sounds equal bilaterally, no wheezes rales or rhonchi. Speaks in full sentences no difficulty ABDOMEN: Soft, nontender. Normoactive bowel sounds all 4 quadrants. No guarding or rebound. EXTREMITIES: Normal range of motion, no clubbing or edema. Neurovascularly intact NEUROLOGICAL: Alert and oriented x4.Normal gait and speech. Cranial nerves II through XII grossly intact. SKIN: Warm, dry, no laceration, no petechiae, no rashes or lesions. Course Orders Ordered: ED Orders 10/04/22 12:28 XR chest 1V Stat EKG-12 Lead Stat 10/04/22 12:30 Respiratory Panel (Film Array) Stat 10/04/22 12:45 BNP [NT-proBNP (BNP-Adult 18+)] Stat Complete Blood Count AUTO DIFF Stat Comprehensive Metabolic Panel Stat Lactate (Lactic Acid) Stat Lipase Stat Magnesium Stat PTT Partial Thromboplastin German Stat Prothrombin Time INR Stat Troponin & CK Cardiac Panel Stat 10/04/22 14:14 CT angio chest PE protocol Stat 10/04/22 14:20 Blood Culture Stat 10/04/22 16:00 Trop I [Troponin I] Stat 10/04/22 17:56 Education, smoking cessation ONGOING 10/05/22 06:00 Basic Metabolic Panel DAILY Complete Blood Count AUTO DIFF DAILY 10/06/22 06:00 Basic Metabolic Panel DAILY Complete Blood Count AUTO DIFF DAILY 10/07/22 06:00 Basic Metabolic Panel DAILY Complete Blood Count AUTO DIFF DAILY Acetaminophen (Acetaminophen 325 Mg Tablet) 650 mg PO Q6H PRN PRN Reason: Fever/Mild Pain (1-3) Amlodipine Besylate (Amlodipine 5 Mg Tablet) 10 mg PO DAILY EVELIA Aspirin (Aspirin Ec 81 Mg Tablet) 81 mg PO DAILY EVELIA Atorvastatin Calcium (Atorvastatin 20 Mg Tablet) 10 mg PO QPM EVELIA Clonidine HCl (Clonidine 0.1 Mg Tablet) 0.3 mg PO BID EVELIA Sodium Chloride (Normal Saline 0.9%) 1,000 mls @ 100 mls/hr IV CONT EVELIA Stop: 11/04/22 03:55 Last Admin: 10/04/22 19:02 Dose: 100 mls/hr Documented By: LADANF Ceftriaxone Sodium 1,000 mg/ (Sodium Chloride) 100 mls @ 200 mls/hr IV Q24H EVELIA Stop: 10/09/22 15:59 Azithromycin 500 mg/ Dextrose 250 mls @ 250 mls/hr IV Q24H EVELIA Stop: 10/07/22 16:59 Lisinopril (Lisinopril 20 Mg Tablet) 40 mg PO DAILY EVELIA Naloxone HCl (Naloxone 0.4 Mg/Ml Vial) 0.2 mg IV Q2MIN PRN PRN Reason: Opiate Reversal Discontinued Medications Aspirin (Aspirin 81 Mg Chew Tab) 324 mg PO NOW ONE Stop: 10/04/22 12:29 Last Admin: 10/04/22 14:13 Dose: 324 mg Documented By: MLTino Ceftriaxone Sodium 2,000 mg/ (Sodium Chloride) 100 mls @ 200 mls/hr IV NOW ONE Stop: 10/04/22 15:58 Last Infusion: 10/04/22 17:20 Dose: 0 mls/hr Documented By: Admin: 10/04/22 16:22 Dose: 200 mls/hr Documented By: AT Azithromycin 500 mg/ Dextrose 250 mls @ 250 mls/hr IV NOW ONE Stop: 10/04/22 15:58 Last Infusion: 10/04/22 17:55 Dose: 0 mls/hr Documented By: Admin: 10/04/22 17:23 Dose: 250 mls/hr Documented By: AURELIANO Vital Signs Vital signs: Vital Signs - 8 hr 10/04/22 12:23 10/04/22 13:30 10/04/22 14:56 Temperature 98.5 F 100.1 F H Pulse Rate 121 H 116 H 102 H Respiratory Rate 22 24 28 H Blood Pressure 137/80 124/70 153/74 H Pulse Oximetry 95 94 95 Oxygen Delivery Method Room Air Room Air Room Air 10/04/22 15:04 10/04/22 15:04 10/04/22 15:30 Temperature Pulse Rate 100 H Respiratory Rate 29 H Blood Pressure 136/70 150/71 H Pulse Oximetry 95 Oxygen Delivery Method 10/04/22 15:30 10/04/22 16:00 10/04/22 16:00 Temperature Pulse Rate 98 H 98 H Respiratory Rate 25 H 21 Blood Pressure 180/66 H Pulse Oximetry 95 95 Oxygen Delivery Method Room Air 10/04/22 16:30 10/04/22 16:30 10/04/22 17:00 Temperature Pulse Rate 97 H Respiratory Rate 27 H Blood Pressure 162/77 H 150/67 H Pulse Oximetry 96 Oxygen Delivery Method Room Air 10/04/22 17:00 10/04/22 17:30 10/04/22 17:30 Temperature Pulse Rate 104 H 101 H Respiratory Rate 25 H 24 Blood Pressure 152/71 H Pulse Oximetry 96 95 Oxygen Delivery Method Room Air Blow By Room Air MDM - SOB/Dyspnea Lab Data 10/04/22 12:45 10/04/22 12:45 Labs: Lab Results 10/04/22 10/04/22 10/04/22 Range/Units 12:30 12:45 12:45 WBC 17.9 H (4.5-11.0) X10^3/uL RBC 4.84 (4.5-5.9) X10^6/uL Hgb 15.5 (13.5-17.5) g/dL Hct 45.4 (41-53) % MCV 93.8 (80-100) fL MCH 32.0 (26-34) PG MCHC 34.1 (30-36) % RDW 13.8 (11.6-14.8) % Plt Count 191 (150-400) X10^3/uL Neut % (Auto) Not Reportable Lymph % (Auto) Not Reportable [place] % (Auto) Not Reportable Eos % (Auto) Not Reportable Baso % (Auto) Not Reportable Lymph # (Auto) Not Reportable [place] # (Auto) Not Reportable Baso # (Auto) Not Reportable Total Counted 100 Seg Neutrophils % 61.0 (38-70) % Band Neutrophils % 36.0 H (3-7) % Lymphocytes % (Manual) 1.0 L (25-45) % Monocytes % (Manual) 2.0 (2-11) % Neutrophils # (Manual) 53864 H (3206-8490) /uL RBC Morphology Normal morphology PT 18.8 H (10.1-12.7) SECONDS INR 1.6 H (0.9-1.3) APTT 32 (26-36) SECONDS Sodium (137-145) mmol/L Potassium (3.4-5.1) mmol/L Chloride (98-107) mmol/L Carbon Dioxide (22-32) mmol/L BUN (9-20) mg/dL Creatinine (0.66-1.25) mg/dL Estimated GFR (>60) mL/min BUN/Creatinine Ratio (6-22) Glucose (80-110) mg/dL Lactate (0.7-2.1) mmol/L Calcium (8.4-10.2) mg/dL Magnesium (1.6-2.3) mg/dL Total Bilirubin (0.2-1.3) mg/dL AST (17-59) IU/L ALT (<50) IU/L Alkaline Phosphatase (38-126) U/L Total Creatine Kinase (55-170) U/L CK-MB (CK-2) CK-MB (CK-2) Rel Index Troponin I (0.01-0.034) ng/mL NT-Pro-B Natriuret Pep (<125) pg/mL Total Protein (6.3-8.2) g/dL Albumin (3.5-5.0) g/dL Globulin (1.7-4.1) g/dL Albumin/Globulin Ratio (1.0-2.8) Lipase (23-300) U/L Chlamy pneumoniae PCR Not detected (Not Detect) Adenovirus (PCR) Not detected (Not Detect) B. pertussis DNA (PCR) Not detected (Not Detecte) B.parapertussis DNA PCR Not detected (Not Detecte) Coronavirus OC43 (PCR) Not detected (Not Detect) Coronavirus HKU1 (PCR) Not detected (Not Detect) Coronavirus 229E (PCR) Not detected (Not Detect) SARS-CoV-2 (PCR) Not detected (Not Detecte) Coronavirus NL63 (PCR) Not detected (Not Detect) Human Metapneumovir PCR Not detected (Not Detect) Influenza Type A (PCR) Not detected (Not Detect) Influenza Type B (PCR) Not detected (Not Detect) M. pneumoniae (PCR) Not detected (Not Detect) Parainfluenza 1 (PCR) Not detected (Not Detect) Parainfluenza 2 (PCR) Not detected (Not Detect) Parainfluenza 3 (PCR) Not detected (Not Detect) Parainfluenza 4 (PCR) Not detected (Not Detect) RSV (PCR) Not detected (Not Detect) Entero/Rhino (PCR) Not detected (Not Detect) 10/04/22 10/04/22 10/04/22 Range/Units 12:45 12:45 12:45 WBC (4.5-11.0) X10^3/uL RBC (4.5-5.9) X10^6/uL Hgb (13.5-17.5) g/dL Hct (41-53) % MCV (80-100) fL MCH (26-34) PG MCHC (30-36) % RDW (11.6-14.8) % Plt Count (150-400) X10^3/uL Neut % (Auto) Lymph % (Auto) [place] % (Auto) Eos % (Auto) Baso % (Auto) Lymph # (Auto) [place] # (Auto) Baso # (Auto) Total Counted Seg Neutrophils % (38-70) % Band Neutrophils % (3-7) % Lymphocytes % (Manual) (25-45) % Monocytes % (Manual) (2-11) % Neutrophils # (Manual) (9957-8614) /uL RBC Morphology PT (10.1-12.7) SECONDS INR (0.9-1.3) APTT (26-36) SECONDS Sodium 133 L (137-145) mmol/L Potassium 3.9 (3.4-5.1) mmol/L Chloride 95 L (98-107) mmol/L Carbon Dioxide 32 (22-32) mmol/L BUN 24 H (9-20) mg/dL Creatinine 0.89 (0.66-1.25) mg/dL Estimated GFR > 60 (>60) mL/min BUN/Creatinine Ratio 27.0 H (6-22) Glucose 158 H (80-110) mg/dL Lactate 2.3 H (0.7-2.1) mmol/L Calcium 9.0 (8.4-10.2) mg/dL Magnesium 2.0 (1.6-2.3) mg/dL Total Bilirubin 1.8 H (0.2-1.3) mg/dL AST 25 (17-59) IU/L ALT 29 (<50) IU/L Alkaline Phosphatase 48 (38-126) U/L Total Creatine Kinase 29 L (55-170) U/L CK-MB (CK-2) TNP CK-MB (CK-2) Rel Index TNP Troponin I 0.062 H (0.01-0.034) ng/mL NT-Pro-B Natriuret Pep 2160 H (<125) pg/mL Total Protein 7.4 (6.3-8.2) g/dL Albumin 4.2 (3.5-5.0) g/dL Globulin 3.2 (1.7-4.1) g/dL Albumin/Globulin Ratio 1.3 (1.0-2.8) Lipase 26 (23-300) U/L Chlamy pneumoniae PCR (Not Detect) Adenovirus (PCR) (Not Detect) B. pertussis DNA (PCR) (Not Detecte) B.parapertussis DNA PCR (Not Detecte) Coronavirus OC43 (PCR) (Not Detect) Coronavirus HKU1 (PCR) (Not Detect) Coronavirus 229E (PCR) (Not Detect) SARS-CoV-2 (PCR) (Not Detecte) Coronavirus NL63 (PCR) (Not Detect) Human Metapneumovir PCR (Not Detect) Influenza Type A (PCR) (Not Detect) Influenza Type B (PCR) (Not Detect) M. pneumoniae (PCR) (Not Detect) Parainfluenza 1 (PCR) (Not Detect) Parainfluenza 2 (PCR) (Not Detect) Parainfluenza 3 (PCR) (Not Detect) Parainfluenza 4 (PCR) (Not Detect) RSV (PCR) (Not Detect) Entero/Rhino (PCR) (Not Detect) 10/04/22 10/04/22 Range/Units 15:20 16:00 WBC (4.5-11.0) X10^3/uL RBC (4.5-5.9) X10^6/uL Hgb (13.5-17.5) g/dL Hct (41-53) % MCV (80-100) fL MCH (26-34) PG MCHC (30-36) % RDW (11.6-14.8) % Plt Count (150-400) X10^3/uL Neut % (Auto) Lymph % (Auto) [place] % (Auto) Eos % (Auto) Baso % (Auto) Lymph # (Auto) [place] # (Auto) Baso # (Auto) Total Counted Seg Neutrophils % (38-70) % Band Neutrophils % (3-7) % Lymphocytes % (Manual) (25-45) % Monocytes % (Manual) (2-11) % Neutrophils # (Manual) (5045-2920) /uL RBC Morphology PT (10.1-12.7) SECONDS INR (0.9-1.3) APTT (26-36) SECONDS Sodium (137-145) mmol/L Potassium (3.4-5.1) mmol/L Chloride (98-107) mmol/L Carbon Dioxide (22-32) mmol/L BUN (9-20) mg/dL Creatinine (0.66-1.25) mg/dL Estimated GFR (>60) mL/min BUN/Creatinine Ratio (6-22) Glucose (80-110) mg/dL Lactate 2.1 (0.7-2.1) mmol/L Calcium (8.4-10.2) mg/dL Magnesium (1.6-2.3) mg/dL Total Bilirubin (0.2-1.3) mg/dL AST (17-59) IU/L ALT (<50) IU/L Alkaline Phosphatase (38-126) U/L Total Creatine Kinase (55-170) U/L CK-MB (CK-2) CK-MB (CK-2) Rel Index Troponin I 0.074 H (0.01-0.034) ng/mL NT-Pro-B Natriuret Pep (<125) pg/mL Total Protein (6.3-8.2) g/dL Albumin (3.5-5.0) g/dL Globulin (1.7-4.1) g/dL Albumin/Globulin Ratio (1.0-2.8) Lipase (23-300) U/L Chlamy pneumoniae PCR (Not Detect) Adenovirus (PCR) (Not Detect) B. pertussis DNA (PCR) (Not Detecte) B.parapertussis DNA PCR (Not Detecte) Coronavirus OC43 (PCR) (Not Detect) Coronavirus HKU1 (PCR) (Not Detect) Coronavirus 229E (PCR) (Not Detect) SARS-CoV-2 (PCR) (Not Detecte) Coronavirus NL63 (PCR) (Not Detect) Human Metapneumovir PCR (Not Detect) Influenza Type A (PCR) (Not Detect) Influenza Type B (PCR) (Not Detect) M. pneumoniae (PCR) (Not Detect) Parainfluenza 1 (PCR) (Not Detect) Parainfluenza 2 (PCR) (Not Detect) Parainfluenza 3 (PCR) (Not Detect) Parainfluenza 4 (PCR) (Not Detect) RSV (PCR) (Not Detect) Entero/Rhino (PCR) (Not Detect) Imaging Data Chest x-ray: Radiologist's Impression: PROCEDURE:? XR CHEST 1V ? INDICATIONS:? chest pain ? TECHNIQUE:? One view of the chest was acquired.? ? COMPARISON:? [facility], XR CHEST 2V, 10/11/2018, 12:55. ? FINDINGS:? ? Surgical changes and devices:? None.? ? Lungs and pleura:? Right lower lobe opacity.? There is likely small pleural effusion on the right.? No pneumothorax.? ? Mediastinum:? Mediastinal contours appear normal.? Heart size is normal.? ? Bones and chest wall:? No suspicious bony lesions.? Overlying soft tissues appear unremarkable.? ? IMPRESSION:? ? Findings most consistent with right basilar pneumonia with adjacent pleural effusion.? Recommend clinical correlation and follow-up to resolution. and follow-up to resolution.? ? ? Dictated by: Kris Giordano D.O. on 10/04/2022 at 12:06 ? ? CT scan - chest: Radiologist's Impression: PROCEDURE:? CT ANGIO CHEST PE PROTOCOL ? INDICATIONS:? Hemoptysis, tachycardia short of breath ? TECHNIQUE:? After the administration of intravenous contrast, 2 mm thick sections acquired from the pulmonary apices to the posterior costophrenic angles.? 3-dimensional maximum intensity projection (MIP) coronal and sagittal reformats were then acquired through the thorax.? For radiation dose reduction, the following was used:? automated exposure control, adjustment of mA and/or kV according to patient size.? ? COMPARISON:? [facility], XR CHEST 1V, 10/04/2022, 12:42. ? FINDINGS:? Image quality:? Excellent.? ? Pulmonary arteries:? Pulmonary arteries are normal in size, and demonstrate no intraluminal filling defects to suggest central pulmonary embolism.? ? Lungs and pleura:? There is diffuse opacities of the right lung base extending throughout the right middle and right lower lobes with air bronchograms.? Small right-sided pleural effusion.? Central and peripheral airways are patent.? ? Mediastinum:? Heart size is normal, without pericardial effusion.? Moderate coronary vascular calcifications.? No mediastinal or hilar adenopathy by size criteria.? Multiple prominent mediastinal/hilar lymph nodes.? Thoracic aorta is normal in caliber and enhancement.? Esophagus is normal in caliber, without hiatal hernia.? ? Bones and chest wall:? No suspicious bony lesions.? Ribs and thoracic spine appear intact throughout.? Degenerative changes of the spine with anterior flowing osteophytes throughout the thoracic spine which may be seen in the setting of diffuse idiopathic skeletal hyperostosis.? Thyroid gland demonstrates a subcentimeter right thyroid lobe hypodense nodule.? No axillary or supraclavicular adenopathy.? ? Abdomen:? Visualized upper abdominal solid organs appear normal in the early arterial phase of enhancement.? ? IMPRESSION:? ? Findings most consistent with pneumonia of the right middle and right lower lobes.? There is a small right-sided pleural effusion. ? No evidence of pulmonary embolus or right heart strain. ? Moderate coronary vascular calcifications. ? Additional chronic findings as above.? ? Dictated by: Kris Giordano D.O. on 10/04/2022 at 14:20 ? ? ECG Data Interpretation: I this tachycardia rate 120 VT interval 136 QRS [address] changes Q-wave noted in lead 3 no T-wave inversion PVC noted MDM Narrative Medical decision making narrative: Patient is 72-year-old male presents today with fevers chills tachycardia hemoptysis. Concern for infectious process however with hemoptysis and tachycardia pulmonary embolism was ruled out with CT however it did confirm pneumonia with a right middle and lower lobes. No evidence of heart strain on CT however he does have increased pro BNP of 2600 and indeterminate troponin. He has frequent PVCs on the monitor and on his EKG without ischemic changes on EKG He has signs and symptoms consistent with infection, fever chills cough hemoptysis with leukocytosis of 17 with left shift and bandemia of 36%, mild elevation in lactate of 2.3 improved to 2.1. Vitals are stable without evidence of severe sepsis. He does develop fever and has known infection. At this time with evidence of pneumonia hemoptysis elevation of troponin and BNP without history coronary artery disease or CHF reasonable to admit. Dr. Hill updated on patient's symptoms test results and kindly accepts patient. Discharge Plan Departure Patient Disposition: Admitted As Inpatient Clinical Impression: Pneumonia, Congestive heart failure Admit Date/Time: 10/04/22 17:35 Admit Provider: Brook Hill
[2022-10-04 14:01] LABS: Adenovirus Not Detected (Not Detect); B. parapertussis Not Detected (Not Detecte); Bordetella pertussis Not Detected (Not Detecte); Chlamydophila pneumoniae Not Detected (Not Detect); Coronavirus 229E Not Detected (Not Detect); Coronavirus HKU1 Not Detected (Not Detect); Coronavirus NL 63 Not Detected (Not Detect); Coronavirus OC43 Not Detected (Not Detect); Human Metapneumovirus Not Detected (Not Detect); Human Rhinovirus/Enterovirus Not Detected (Not Detect); Influenza A Not Detected (Not Detect); Influenza B Not Detected (Not Detect); Mycoplasma pneumoniae Not Detected (Not Detect); Parainfluenza Virus 1 Not Detected (Not Detect); Parainfluenza Virus 2 Not Detected (Not Detect); Parainfluenza Virus 3 Not Detected (Not Detect); Parainfluenza Virus 4 Not Detected (Not Detect); Respiratory Syncytial Virus Not Detected (Not Detect); SARS- CoV-2 Not Detected (Not Detecte)
[2022-10-04] MEDS: ASPIRIN 81 MG CHEW TAB 324 MG PO (14:13)
--- NOTE | 2022-10-04 14:14 | DI.CT.S_ITS ---
PROCEDURE: CT ANGIO CHEST PE PROTOCOL INDICATIONS: Hemoptysis, tachycardia short of breath TECHNIQUE: After the administration of intravenous contrast, 2 mm thick sections acquired from the pulmonary apices to the posterior costophrenic angles. 3-dimensional maximum intensity projection (MIP) coronal and sagittal reformats were then acquired through the thorax. For radiation dose reduction, the following was used: automated exposure control, adjustment of mA and/or kV according to patient size. COMPARISON: [facility], CR, XR CHEST 1V, 10/04/2022, 12:42. FINDINGS: Image quality: Excellent. Pulmonary arteries: Pulmonary arteries are normal in size, and demonstrate no intraluminal filling defects to suggest central pulmonary embolism. Lungs and pleura: There is diffuse opacities of the right lung base extending throughout the right middle and right lower lobes with air bronchograms. Small right-sided pleural effusion. Central and peripheral airways are patent. Mediastinum: Heart size is normal, without pericardial effusion. Moderate coronary vascular calcifications. No mediastinal or hilar adenopathy by size criteria. Multiple prominent mediastinal/hilar lymph nodes. Thoracic aorta is normal in caliber and enhancement. Esophagus is normal in caliber, without hiatal hernia. Bones and chest wall: No suspicious bony lesions. Ribs and thoracic spine appear intact throughout. Degenerative changes of the spine with anterior flowing osteophytes throughout the thoracic spine which may be seen in the setting of diffuse idiopathic skeletal hyperostosis. Thyroid gland demonstrates a subcentimeter right thyroid lobe hypodense nodule. No axillary or supraclavicular adenopathy. Abdomen: Visualized upper abdominal solid organs appear normal in the early arterial phase of enhancement. IMPRESSION: Findings most consistent with pneumonia of the right middle and right lower lobes. There is a small right-sided pleural effusion. No evidence of pulmonary embolus or right heart strain. Moderate coronary vascular calcifications. Additional chronic findings as above. Dictated by: Kris Giordano D.O. on 10/04/2022 at 14:20 Approved by: Kris Giordano D.O. on 10/04/2022 at 14:25
[2022-10-04 14:24] LABS: NT-proBNP (BNP-Adult 18+) 2160 pg/mL (<125)
[2022-10-04 15:03] LABS: Reflexed Lactate in 2 Hours Y
[2022-10-04 15:39] LABS: Lactate 2HR (Lactic Acid Rflx) 2.1 mmol/L (0.7-2.1)
[2022-10-04] MEDS: cefTRIAXone 2,000 MG in SODIUM CHLORIDE 0.9% 100 ML 200 MG IV (16:22)
[2022-10-04 16:39] LABS: Troponin I 0.074 ng/mL (0.01-0.034)
[2022-10-04] MEDS: AZITHROMYCIN 500 MG in DEXTROSE 5% IN WATER 250 ML 250 MG IV (17:23)
--- NOTE | 2022-10-04 18:48 | PM.HP.1 ---
History of Present Illness History of Present Illness Chief complaint: blood in vomit, high heart rate, sent by [facility] Narrative: 72-year-old gentleman with history of hypertension, hyperlipidemia, palpitations with no clear underlying arrhythmia presented to the emergency department complaining of fevers, chills, and hemoptysis. Patient reports he did notice a ?scratchy throat? a few days ago. He notes he was planning to go camping this weekend but awoke at around midnight yesterday with shaking chills. He states they lasted about an hour. He developed significant diffuse body aches. States he had difficulty sleeping the rest of the night due to his symptoms. He states at approximately 7:00 a.m. yesterday morning he developed hemoptysis. He states he really was not coughing prior but acutely began coughing and got what he described as bright red blood with very little sputum overall. He reports that continued through the day with hemoptysis. He did not note that his sputum was otherwise colored. Took Tylenol around the clock but continued to feel generally poor. He states this morning he continued to have some hemoptysis and ultimately elected to come in to the hospital for further evaluation. 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 Did have some dry heaving today and did not take his antihypertensive medications. He denies any previous history of cardiac disease. In fact, he reports he has had a full cardiac workup. He had episodes of what he describes as ?racing heart?. Was evaluated with what he describes as a nuclear stress test which he states was negative. He states he wore an event monitor for a week with no arrhythmia identified. He believes that he had the workup in the last couple of years. He states that Dr. Rankin told him he did not have to come back for another couple of years for reassessment. Patient did not have any chest pain, tightness, or pressure. No significant shortness of breath. He did have some elevated troponins in the emergency department, but a nonischemic EKG. On arrival to the emergency department, he was initially afebrile, but shortly thereafter his temperature increased to 100.1. Initial heart rate was 121. Respiratory rate was as high as 28. Blood pressures ranged from normotensive up to 180/66. O2 saturations remained in the mid 90s in room air. Laboratories were remarkable for white blood cell count of 17.9 with a 36% bandemia. Troponin initially was 0.062 and increased to 0.074. BNP was elevated at 2160. INR was 1.6. Chemistry panel revealed a sodium of 133, potassium was normal at 3.9, BUN mildly elevated 24, creatinine 0.89, glucose mildly elevated at 158. Total bilirubin 1.8. Blood cultures are drawn and pending. Respiratory viral panel was negative. Chest x-ray revealed a right basilar pneumonia with adjacent pleural effusion. CT pulmonary angiogram was performed which revealed pneumonia of the right middle and lower lobes with a small right-sided pleural effusion. No evidence of PE or right heart strain. Moderate coronary vascular calcifications. Patient was given 2 g of IV Rocephin, 500 mg of IV azithromycin, a single aspirin and admission was recommended. Currently, patient continues to report he is feeling generally ill. No hemoptysis in the last couple of hours. No shortness of breath. He does have a light dinner at bedside and is planning to try to eat some. [facility] Medical History (Updated 10/04/22 @ 17:30 by Debbi Fox DO) HTN (hypertension) Surgical History Hx of appendectomy Social History household members: spouse Smoking Status: Never smoker alcohol intake: current substance use type: does not use Meds Home Medications and Allergies Home Medications Medication Instructions Recorded Confirmed Type aspirin 81 mg tablet,delayed 81 mg PO DAILY 10/11/18 10/04/22 History release clonidine HCl 0.3 mg tablet 0.3 mg PO BID 10/11/18 10/04/22 History felodipine 10 mg tablet,extended 10 mg PO DAILY 10/11/18 10/04/22 History release 24 hr hydrochlorothiazide 25 mg tablet 25 mg PO DAILY 10/11/18 10/04/22 History lisinopril 40 mg tablet 40 mg PO DAILY 10/11/18 10/04/22 History rosuvastatin 5 mg tablet 5 mg PO QPM 10/11/18 10/04/22 History amlodipine 10 mg tablet 10 mg PO DAILY 10/04/22 10/04/22 History Allergies Allergy/AdvReac Type Severity Reaction Status Date / Time No Known Drug Allergies Allergy Verified 10/04/22 12:23 Review of Systems Review of Systems Narrative: All other systems were reviewed negative Exam Vital Signs (past 8 hours): - 10/04/22 12:23 10/04/22 13:30 10/04/22 14:56 Temperature 98.5 F 100.1 F H Pulse Rate 121 H 116 H 102 H Respiratory Rate 22 24 28 H Blood Pressure 137/80 124/70 153/74 H Pulse Oximetry 95 94 95 Oxygen Delivery Method Room Air Room Air Room Air Oxygen Flow Rate 10/04/22 15:04 10/04/22 15:04 10/04/22 15:30 Temperature Pulse Rate 100 H Respiratory Rate 29 H Blood Pressure 136/70 150/71 H Pulse Oximetry 95 Oxygen Delivery Method Oxygen Flow Rate 10/04/22 15:30 10/04/22 16:00 10/04/22 16:00 Temperature Pulse Rate 98 H 98 H Respiratory Rate 25 H 21 Blood Pressure 180/66 H Pulse Oximetry 95 95 Oxygen Delivery Method Room Air Oxygen Flow Rate 10/04/22 16:30 10/04/22 16:30 10/04/22 17:00 Temperature Pulse Rate 97 H Respiratory Rate 27 H Blood Pressure 162/77 H 150/67 H Pulse Oximetry 96 Oxygen Delivery Method Room Air Oxygen Flow Rate 10/04/22 17:00 10/04/22 17:30 10/04/22 17:30 Temperature Pulse Rate 104 H 101 H Respiratory Rate 25 H 24 Blood Pressure 152/71 H Pulse Oximetry 96 95 Oxygen Delivery Method Room Air Blow By Room Air Oxygen Flow Rate 10/04/22 17:56 Temperature 100 F H Pulse Rate 88 Respiratory Rate 18 Blood Pressure 150/67 H Pulse Oximetry 96 Oxygen Delivery Method Oxygen Flow Rate 0 Oxygen Delivery Method Room Air Oxygen Flow Rate 0 Narrative Exam Narrative: GEN: Ill-appearing middle-aged male, Alert and oriented x3 HEENT: Normocephalic, face symmetric, pupils equal round reactive to light, extraocular movements intact, sclerae anicteric, conjunctiva clear, nares patent, oropharynx reveals an intact soft and hard palate with moist mucous membranes, dentition is fair NECK: Supple, no lymphadenopathy, thyroid without enlargement or nodularity, carotids no bruits CHEST: Respiratory excursions symmetric, diminished with crackles noted in the right base and mid lung zone, clear on the left CV: Regular rate and rhythm, no murmurs, rubs, gallops, PMI nondisplaced ABD: Soft, nontender, nondistended, bowel sounds present in all 4 quadrants, no organomegaly or masses appreciated EXTR: Warm, well perfused, no clubbing/cyanosis/edema SKIN: Warm and dry, without rash NEURO: Alert and oriented x3, grossly intact PSYCH: Mood and affect is within normal limits, judgment and insight are appropriate Objective Labs 10/04/22 12:45 10/04/22 12:45 Labs: Laboratory Results - last 24 hr 10/04/22 10/04/22 10/04/22 12:30 12:45 12:45 WBC 17.9 H RBC 4.84 Hgb 15.5 Hct 45.4 MCV 93.8 MCH 32.0 MCHC 34.1 RDW 13.8 Plt Count 191 Neut % (Auto) Not Reportable Lymph % (Auto) Not Reportable Prairie % (Auto) Not Reportable Eos % (Auto) Not Reportable Baso % (Auto) Not Reportable Lymph # (Auto) Not Reportable [place] # (Auto) Not Reportable Baso # (Auto) Not Reportable Total Counted 100 Seg Neutrophils % 61.0 Band Neutrophils % 36.0 H Lymphocytes % (Manual) 1.0 L Monocytes % (Manual) 2.0 Neutrophils # (Manual) 29565 H RBC Morphology Normal morphology PT 18.8 H INR 1.6 H APTT 32 Sodium Potassium Chloride Carbon Dioxide BUN Creatinine Estimated GFR BUN/Creatinine Ratio Glucose Lactate Calcium Magnesium Total Bilirubin AST ALT Alkaline Phosphatase Total Creatine Kinase CK-MB (CK-2) CK-MB (CK-2) Rel Index Troponin I NT-Pro-B Natriuret Pep Total Protein Albumin Globulin Albumin/Globulin Ratio Lipase Chlamy pneumoniae PCR Not detected Adenovirus (PCR) Not detected B. pertussis DNA (PCR) Not detected B.parapertussis DNA PCR Not detected Coronavirus OC43 (PCR) Not detected Coronavirus HKU1 (PCR) Not detected Coronavirus 229E (PCR) Not detected SARS-CoV-2 (PCR) Not detected Coronavirus NL63 (PCR) Not detected Human Metapneumovir PCR Not detected Influenza Type A (PCR) Not detected Influenza Type B (PCR) Not detected M. pneumoniae (PCR) Not detected Parainfluenza 1 (PCR) Not detected Parainfluenza 2 (PCR) Not detected Parainfluenza 3 (PCR) Not detected Parainfluenza 4 (PCR) Not detected RSV (PCR) Not detected Entero/Rhino (PCR) Not detected 10/04/22 10/04/22 10/04/22 12:45 12:45 12:45 WBC RBC Hgb Hct MCV MCH MCHC RDW Plt Count Neut % (Auto) Lymph % (Auto) Prairie % (Auto) Eos % (Auto) Baso % (Auto) Lymph # (Auto) [place] # (Auto) Baso # (Auto) Total Counted Seg Neutrophils % Band Neutrophils % Lymphocytes % (Manual) Monocytes % (Manual) Neutrophils # (Manual) RBC Morphology PT INR APTT Sodium 133 L Potassium 3.9 Chloride 95 L Carbon Dioxide 32 BUN 24 H Creatinine 0.89 Estimated GFR > 60 BUN/Creatinine Ratio 27.0 H Glucose 158 H Lactate 2.3 H Calcium 9.0 Magnesium 2.0 Total Bilirubin 1.8 H AST 25 ALT 29 Alkaline Phosphatase 48 Total Creatine Kinase 29 L CK-MB (CK-2) TNP CK-MB (CK-2) Rel Index TNP Troponin I 0.062 H NT-Pro-B Natriuret Pep 2160 H Total Protein 7.4 Albumin 4.2 Globulin 3.2 Albumin/Globulin Ratio 1.3 Lipase 26 Chlamy pneumoniae PCR Adenovirus (PCR) B. pertussis DNA (PCR) B.parapertussis DNA PCR Coronavirus OC43 (PCR) Coronavirus HKU1 (PCR) Coronavirus 229E (PCR) SARS-CoV-2 (PCR) Coronavirus NL63 (PCR) Human Metapneumovir PCR Influenza Type A (PCR) Influenza Type B (PCR) M. pneumoniae (PCR) Parainfluenza 1 (PCR) Parainfluenza 2 (PCR) Parainfluenza 3 (PCR) Parainfluenza 4 (PCR) RSV (PCR) Entero/Rhino (PCR) 10/04/22 10/04/22 15:20 16:00 WBC RBC Hgb Hct MCV MCH MCHC RDW Plt Count Neut % (Auto) Lymph % (Auto) Prairie % (Auto) Eos % (Auto) Baso % (Auto) Lymph # (Auto) [place] # (Auto) Baso # (Auto) Total Counted Seg Neutrophils % Band Neutrophils % Lymphocytes % (Manual) Monocytes % (Manual) Neutrophils # (Manual) RBC Morphology PT INR APTT Sodium Potassium Chloride Carbon Dioxide BUN Creatinine Estimated GFR BUN/Creatinine Ratio Glucose Lactate 2.1 Calcium Magnesium Total Bilirubin AST ALT Alkaline Phosphatase Total Creatine Kinase CK-MB (CK-2) CK-MB (CK-2) Rel Index Troponin I 0.074 H NT-Pro-B Natriuret Pep Total Protein Albumin Globulin Albumin/Globulin Ratio Lipase Chlamy pneumoniae PCR Adenovirus (PCR) B. pertussis DNA (PCR) B.parapertussis DNA PCR Coronavirus OC43 (PCR) Coronavirus HKU1 (PCR) Coronavirus 229E (PCR) SARS-CoV-2 (PCR) Coronavirus NL63 (PCR) Human Metapneumovir PCR Influenza Type A (PCR) Influenza Type B (PCR) M. pneumoniae (PCR) Parainfluenza 1 (PCR) Parainfluenza 2 (PCR) Parainfluenza 3 (PCR) Parainfluenza 4 (PCR) RSV (PCR) Entero/Rhino (PCR) Assessment & Plan Assessment & Plan narrative: 1. Sepsis Patient presents meeting criteria for sepsis with fever, tachycardia, tachypnea, leukocytosis with bandemia, and mild lactic acidosis. Etiology is pneumonia. Blood cultures pending as noted. Will be covered for community-acquired pneumonia with Rocephin and azithromycin. Follow-up lactate showed improvement at 2.1. Will continue close monitoring. I have ordered gentle IV fluids to be given for a total of 2 L, given his sepsis physiology. However he does have an elevated BNP and significant hypertensive history, so will not give typical sepsis treatment with 30 cc/kilogram. Given the rigors he had beginning early yesterday morning, I certainly would not be surprised if he is bacteremic. Noted, await culture results. 2. Right middle and lower lobe community-acquired pneumonia with small right pleural effusion Patient will be placed on Rocephin and azithromycin as noted. He did have some hemoptysis as well. He is a remote history of pneumonia some years ago. Uncertain if his pneumococcal vaccination is up to date. I have encouraged him to work on good pulmonary hygiene. Incentive spirometry has been ordered. I did stress to him that with a small pleural effusion, he can develop a parapneumonic effusion and/or empyema. Thus, improving his overall respiratory effort is imperative.Advised this might be painful and it will make him cough, but this is necessary to help improve the aeration to his right lung. He expresses understanding and agrees. He remains stable on room air. 3. Coagulopathy INR is 1.6. He is not chronically anticoagulated. Suspect this is sepsis related. We will repeat labs in the morning. 4. Elevated troponin Patient has no ischemic symptoms. Will monitor serially until they down trend. If he does have increasing troponin, will plan to perform an echocardiogram tomorrow. 5. Elevated BNP Patient has no clinical or imaging evidence of volume overload. It may be his BNP is elevated secondary to his underlying hypertension, which appears to be difficult to manage at baseline as he is on multiple medications. As noted above will gently hydrate with 2 L of fluid and monitor closely. 6. Hyperbilirubinemia Mild at 1.8. Again, suspect this is secondary to sepsis. Will repeat labs in the morning. 7. Hyperglycemia Mild. Nonfasting lab. Will check a hemoglobin A1c for completeness. 8. Hypertension Will resume amlodipine, clonidine, lisinopril. Holding hydrochlorothiazide for now given his sepsis. For unclear reasons he is also prescribed felodipine. This has been held. Code status Full Prophylaxis Low Cordelia score Disposition Admit to acute care, inpatient status Surrogate decision maker: Iva issa, spouse
[2022-10-04] MEDS: SODIUM CHLORIDE 0.9% 1,000 ML 100 ML IV (19:02)
[2022-10-04] MEDS: cloNIDine 0.1 MG TABLET 0.3 MG PO (20:19)
[2022-10-04 22:19] LABS: Troponin I 0.057 ng/mL (0.01-0.034)
[2022-10-05] VITALS (10 sets, daily range): BP systolic 87–134; BP diastolic 47–62; PULSE 66–80; RESP 16–18; TEMP 36.4–38.4; O2SAT 92–96
[2022-10-05 04:51] LABS: INR 1.3 (0.9-1.3); Prothrombin Time 14.9 SECONDS (10.1-12.7)
[2022-10-05 04:52] LABS: Add Manual Diff / Slide Review NO; Basophils Absolute Auto 0 /uL (0-100); Basophils Percent Auto 0.1 % (0-2); Eosinophils Absolute Auto 0 /uL (0-450); Eosinophils Percent Auto 0.1 % (2-4); Hemoglobin 13.5 g/dL (13.5-17.5); Lymphocytes Absolute Auto 600 /uL (1100-4500); Lymphocytes Percent Auto 4.4 % (25-40); Mean Corpuscular HGB Conc 34.6 % (30-36); Mean Corpuscular Hemoglobin 32.1 PG (26-34); Monocytes Absolute Auto 700 /uL (0-900); Monocytes Percent Auto 5.2 % (3-14); Neutrophils Absolute Auto 11800 /uL (1500-7000); Neutrophils Percent Auto 90.2 % (50-75); Platelet Count 175 X10^3/uL (150-400); Red Cell Distribution Width 13.7 % (11.6-14.8); White Blood Cell Count 13.1 X10^3/uL (4.5-11.0)
[2022-10-05 05:00] LABS: BUN Creatinine Ratio 29.6 (6-22); Blood Urea Nitrogen 24 mg/dL (9-20); Calcium 8.2 mg/dL (8.4-10.2); Carbon Dioxide 31 mmol/L (22-32); Chloride 97 mmol/L (98-107); Estimated Glomerular Filt Rate > 60 mL/min (>60); Glucose 99 mg/dL (80-110); HEMOLYSIS < 15 (0-50); Potassium 3.2 mmol/L (3.4-5.1); Sodium 131 mmol/L (137-145)
[2022-10-05 05:02] LABS: Alanine Aminotransferase 25 IU/L (<50); Albumin 2.8 g/dL (3.5-5.0); Albumin Globulin Ratio 1.2 (1.0-2.8); Alkaline Phosphatase 67 U/L (38-126); Aspartate Aminotransferase 24 IU/L (17-59); Bilirubin Total 1.1 mg/dL (0.2-1.3); Bilirubin Unconjugated 0.7 mg/dL (0.0-1.1); Globulin 2.4 g/dL (1.7-4.1); HEMOLYSIS < 15 (0-50); Total Protein 5.2 g/dL (6.3-8.2)
[2022-10-05] MEDS: SODIUM CHLORIDE 0.9% 1,000 ML 100 ML IV (05:06)
[2022-10-05 05:12] LABS: Troponin I 0.039 ng/mL (0.01-0.034)
[2022-10-05] MEDS: LACTOBACILLUS ACIDOPHILUS TABLET 1 EACH PO ×3 (09:49→16:29)
[2022-10-05] MEDS: ASPIRIN EC 81 MG TABLET PO (09:49)
[2022-10-05] MEDS: ACETAMINOPHEN 325 MG TABLET 650 MG PO (09:49)
--- NOTE | 2022-10-05 11:06 | PC.NURSE ---
Assess- Patient is alert and oriented x4, he states that he is feeling better than yesterday. He does have a temp of 101 and tylenol given. Patient took his own meds from home this morning. Explained to patient that he should not bring his own meds and that we have the medications that he needs here. He was more than understanding. BS cta, on ra. IVF infusing, when this bag is finished he will be heplocked.
--- NOTE | 2022-10-05 12:22 | CM.DANOTE ---
DCP: Case received, EMR reviewed and met with patient. Introduced self and role. Was able to obtain information regarding patient's baseline activity status prior to hospitalization. DCP assessment completed with information currently available. Patient is a 72 year old male who admitted yesterday afternoon to the care of the hospitalist team. PCP: Dr. Lema. Payer: confirmed: [facility]/Medicare. Patient came to the hospital via private vehicle secondary to having hemoptysis and tachycardia. Notes indicate that patient had been getting his camper ready on a camping trip, and he developed body aches, and dry heaving, coughing up a half-dollar size of bright red blood. Patient was diagnosed with right middle and lower lobe community-acquired pneumonia with small right pleural effusion. Met with patient in his room. He was laying in bed, alert and oriented, starting to feel better, he is on room air. Confirmed that he resides in [place] with his spouse, Iva. He is independent at baseline, is employed for [employer]. P: DCP to continue to follow. Plan is home when deemed medically stable. Blood cultures are still pending. Meaghan Adams RN/Field Operations Coordinator Discharge Planning/Care Management CM Discharge Assessment Start: 10/05/22 12:20 Freq: Status: Active Protocol: Document 10/05/22 12:21 (Rec: 10/05/22 12:22 [id number]) Discharge Planning Assessment Assigned Tool Maintenance Technician Meaghan Adams RN/Field Operations Coordinator Advance Directives? No History Provided By Patient,Medical Record Prior Living Arrangements House Household Members spouse Type of transporation used prior to Drives own vehicle admit Independent with ADL's Yes Is patient alert and oriented? Yes Caregiver for Another No Barriers to Discharge No Discharge Plan Home Transportation Arrangement Spouse Referrals Initiated None needed Whiteboard Updated in Patient Room with Yes name and ext. # of Tool Maintenance Technician Review Status In Process Next Review Type Continued Stay Review
[2022-10-05] MEDS: POTASSIUM CHLORIDE 20 MEQ TAB 40 MEQ PO ×2 (12:32→18:04)
[2022-10-05] MEDS: SODIUM CHLORIDE 0.9% 1,000 ML 1000 ML IV (12:44)
--- NOTE | 2022-10-05 13:04 | PM.PN.1 ---
Subjective Subjective Interval history: 72-year-old gentleman with history of hypertension, hyperlipidemia, palpitations with no clear underlying arrhythmia admitted yesterday w/RML and RLL CAP w/hemoptysis and small pleural effusion and sepsis. Patient reports this morning he continued to have hemoptysis. He is having a bit less this afternoon. No significant shortness of breath. He was able to eat breakfast which he states was the 1st time he is eaten in several days. No chest pain. He is had progressive hypotension since admission with blood pressure down from 150 5/70 last evening to 87/47 at around noon time. He is presently receiving an IV fluid bolus. He continues to feel quite exhausted. Exam Vital Signs (past 8 hours): - 10/04/22 13:30 10/04/22 14:56 10/04/22 15:04 Temperature 100.1 F H Pulse Rate 116 H 102 H Respiratory Rate 24 28 H Blood Pressure 124/70 153/74 H 136/70 Pulse Oximetry 94 95 Oxygen Delivery Method Room Air Room Air Oxygen Flow Rate 10/04/22 15:04 10/04/22 15:30 10/04/22 15:30 Temperature Pulse Rate 100 H 98 H Respiratory Rate 29 H 25 H Blood Pressure 150/71 H Pulse Oximetry 95 95 Oxygen Delivery Method Room Air Oxygen Flow Rate 10/04/22 16:00 10/04/22 16:00 10/04/22 16:30 Temperature Pulse Rate 98 H Respiratory Rate 21 Blood Pressure 180/66 H 162/77 H Pulse Oximetry 95 Oxygen Delivery Method Oxygen Flow Rate 10/04/22 16:30 10/04/22 17:00 10/04/22 17:00 Temperature Pulse Rate 97 H 104 H Respiratory Rate 27 H 25 H Blood Pressure 150/67 H Pulse Oximetry 96 96 Oxygen Delivery Method Room Air Room Air Blow By Oxygen Flow Rate 10/04/22 17:30 10/04/22 17:30 10/04/22 17:56 Temperature 100 F H Pulse Rate 101 H 88 Respiratory Rate 24 18 Blood Pressure 152/71 H 150/67 H Pulse Oximetry 95 96 Oxygen Delivery Method Room Air Oxygen Flow Rate 0 10/04/22 17:56 10/04/22 19:57 10/04/22 20:19 Temperature 99.6 F Pulse Rate 91 H 91 H Respiratory Rate 17 Blood Pressure 155/70 H 155/70 H Pulse Oximetry 96 98 Oxygen Delivery Method Room Air Oxygen Flow Rate 0 10/04/22 20:00 Temperature Pulse Rate Respiratory Rate Blood Pressure Pulse Oximetry Oxygen Delivery Method Room Air Oxygen Flow Rate Oxygen Delivery Method Room Air Oxygen Flow Rate 0 Narrative Exam Narrative: GEN:? Ill-appearing middle-aged male, Alert and oriented x3, fatigued appearing HEENT:? Normocephalic, face symmetric CHEST:? Respiratory excursions symmetric, diminished with crackles noted in the right base and mid lung zone, clear on the left CV:? Regular rate and rhythm, no murmurs, rubs, gallops, PMI nondisplaced ABD:? Soft, nontender, nondistended, bowel sounds present in all 4 quadrants, no organomegaly or masses appreciated EXTR:? Warm, well perfused, no clubbing/cyanosis/edema SKIN:? Warm and dry, without rash, pale, NEURO:? Alert and oriented x3, grossly intact Objective Labs 10/05/22 04:05 10/05/22 04:05 Labs: Laboratory Results - last 24 hr 10/04/22 10/04/22 10/04/22 12:30 12:45 12:45 WBC 17.9 H RBC 4.84 Hgb 15.5 Hct 45.4 MCV 93.8 MCH 32.0 MCHC 34.1 RDW 13.8 Plt Count 191 Neut % (Auto) Not Reportable Lymph % (Auto) Not Reportable [place] % (Auto) Not Reportable Eos % (Auto) Not Reportable Baso % (Auto) Not Reportable Lymph # (Auto) Not Reportable [place] # (Auto) Not Reportable Baso # (Auto) Not Reportable Total Counted 100 Seg Neutrophils % 61.0 Band Neutrophils % 36.0 H Lymphocytes % (Manual) 1.0 L Monocytes % (Manual) 2.0 Neutrophils # (Manual) 61523 H RBC Morphology Normal morphology PT 18.8 H INR 1.6 H APTT 32 Sodium Potassium Chloride Carbon Dioxide BUN Creatinine Estimated GFR BUN/Creatinine Ratio Glucose Lactate Calcium Magnesium Total Bilirubin AST ALT Alkaline Phosphatase Total Creatine Kinase CK-MB (CK-2) CK-MB (CK-2) Rel Index Troponin I NT-Pro-B Natriuret Pep Total Protein Albumin Globulin Albumin/Globulin Ratio Lipase Chlamy pneumoniae PCR Not detected Adenovirus (PCR) Not detected B. pertussis DNA (PCR) Not detected B.parapertussis DNA PCR Not detected Coronavirus OC43 (PCR) Not detected Coronavirus HKU1 (PCR) Not detected Coronavirus 229E (PCR) Not detected SARS-CoV-2 (PCR) Not detected Coronavirus NL63 (PCR) Not detected Human Metapneumovir PCR Not detected Influenza Type A (PCR) Not detected Influenza Type B (PCR) Not detected M. pneumoniae (PCR) Not detected Parainfluenza 1 (PCR) Not detected Parainfluenza 2 (PCR) Not detected Parainfluenza 3 (PCR) Not detected Parainfluenza 4 (PCR) Not detected RSV (PCR) Not detected Entero/Rhino (PCR) Not detected 10/04/22 10/04/22 10/04/22 12:45 12:45 12:45 WBC RBC Hgb Hct MCV MCH MCHC RDW Plt Count Neut % (Auto) Lymph % (Auto) [place] % (Auto) Eos % (Auto) Baso % (Auto) Lymph # (Auto) [place] # (Auto) Baso # (Auto) Total Counted Seg Neutrophils % Band Neutrophils % Lymphocytes % (Manual) Monocytes % (Manual) Neutrophils # (Manual) RBC Morphology PT INR APTT Sodium 133 L Potassium 3.9 Chloride 95 L Carbon Dioxide 32 BUN 24 H Creatinine 0.89 Estimated GFR > 60 BUN/Creatinine Ratio 27.0 H Glucose 158 H Lactate 2.3 H Calcium 9.0 Magnesium 2.0 Total Bilirubin 1.8 H AST 25 ALT 29 Alkaline Phosphatase 48 Total Creatine Kinase 29 L CK-MB (CK-2) TNP CK-MB (CK-2) Rel Index TNP Troponin I 0.062 H NT-Pro-B Natriuret Pep 2160 H Total Protein 7.4 Albumin 4.2 Globulin 3.2 Albumin/Globulin Ratio 1.3 Lipase 26 Chlamy pneumoniae PCR Adenovirus (PCR) B. pertussis DNA (PCR) B.parapertussis DNA PCR Coronavirus OC43 (PCR) Coronavirus HKU1 (PCR) Coronavirus 229E (PCR) SARS-CoV-2 (PCR) Coronavirus NL63 (PCR) Human Metapneumovir PCR Influenza Type A (PCR) Influenza Type B (PCR) M. pneumoniae (PCR) Parainfluenza 1 (PCR) Parainfluenza 2 (PCR) Parainfluenza 3 (PCR) Parainfluenza 4 (PCR) RSV (PCR) Entero/Rhino (PCR) 10/04/22 10/04/22 15:20 16:00 WBC RBC Hgb Hct MCV MCH MCHC RDW Plt Count Neut % (Auto) Lymph % (Auto) [place] % (Auto) Eos % (Auto) Baso % (Auto) Lymph # (Auto) [place] # (Auto) Baso # (Auto) Total Counted Seg Neutrophils % Band Neutrophils % Lymphocytes % (Manual) Monocytes % (Manual) Neutrophils # (Manual) RBC Morphology PT INR APTT Sodium Potassium Chloride Carbon Dioxide BUN Creatinine Estimated GFR BUN/Creatinine Ratio Glucose Lactate 2.1 Calcium Magnesium Total Bilirubin AST ALT Alkaline Phosphatase Total Creatine Kinase CK-MB (CK-2) CK-MB (CK-2) Rel Index Troponin I 0.074 H NT-Pro-B Natriuret Pep Total Protein Albumin Globulin Albumin/Globulin Ratio Lipase Chlamy pneumoniae PCR Adenovirus (PCR) B. pertussis DNA (PCR) B.parapertussis DNA PCR Coronavirus OC43 (PCR) Coronavirus HKU1 (PCR) Coronavirus 229E (PCR) SARS-CoV-2 (PCR) Coronavirus NL63 (PCR) Human Metapneumovir PCR Influenza Type A (PCR) Influenza Type B (PCR) M. pneumoniae (PCR) Parainfluenza 1 (PCR) Parainfluenza 2 (PCR) Parainfluenza 3 (PCR) Parainfluenza 4 (PCR) RSV (PCR) Entero/Rhino (PCR) PFSH Medical History (Updated 10/04/22 @ 17:30 by Debbi Fox DO) HTN (hypertension) Surgical History Hx of appendectomy Social History household members: spouse Smoking Status: Never smoker alcohol intake: current substance use type: does not use Assessment & Plan Assessment & Plan narrative: 1. Sepsis Patient presented meeting criteria for sepsis with fever, tachycardia, tachypnea, leukocytosis with bandemia, and mild lactic acidosis.? Etiology is pneumonia.? Blood cultures pending as noted.? Continues Rocephin and azithromycin. Lactic acidosis has resolved. He has been on IV fluids since admission but unfortunately has had significant hypotension this afternoon. This is despite holding hydrochlorothiazide and felodipine. And typically has very difficult to control hypertension. Await blood culture results. Holding parameters added to his blood pressure medications. Will monitor response to fluid bolus. 2. Right middle and lower lobe community-acquired pneumonia with small right pleural effusion Remains on Rocephin/Azithro. Continue incentive spirometry. He remains at risk for development of a parapneumonic effusion. ? 3. Coagulopathy INR was 1.6 on admission, felt to be d/t sepsis. Today it is improved at 1.3. 4. Elevated troponin Patient has no ischemic symptoms. Troponins have continued to trend down, making the suggestive of demand ischemia. 5. Elevated BNP Patient has no clinical or imaging evidence of volume overload.? It may be his BNP is elevated secondary to his underlying hypertension, which appears to be difficult to manage at baseline as he is on multiple medications.? 6. Hyperbilirubinemia Mild at 1.8 on admission, felt to be d/t sepsis.? Today it is normal. 7. Hyperglycemia Mild.? Nonfasting lab.?A1C pending. 8. Hypertension, complicated by hypotension today Continue amlodipine, clonidine, lisinopril.? Holding hydrochlorothiazide for now given his sepsis.? Also holding felodipine as he is on amlodipine. I have added holding parameters to his blood pressure medications as noted. Code status Full Prophylaxis Low Cordelia score Disposition Possibly home tomorrow if his blood pressures have normalized Surrogate decision maker:? Iva Cantor, spouse
--- NOTE | 2022-10-05 13:58 | PC.NURSE ---
Patient SBP in the 80's, notified MD Hill. ordered 1000ml bolus NS. Bolus given.
[2022-10-05] MEDS: ATORVASTATIN 20 MG TABLET 10 MG PO (16:29)
[2022-10-05] MEDS: cefTRIAXone 1,000 MG in SODIUM CHLORIDE 0.9% 100 ML 200 MG IV (16:29)
[2022-10-05] MEDS: AZITHROMYCIN 500 MG in DEXTROSE 5% IN WATER 250 ML 250 MG IV (17:11)
[2022-10-06] VITALS: BP 119/58; PULSE 67; RESP 17; TEMP 36.5; O2SAT 94
[2022-10-06 02:06] LABS: x Labcorp Estim. Avg Glu (eAG) 117 mg/dL (.); x Labcorp Hemoglobin A1c 5.7 % (4.8-5.6)
[2022-10-06 05:31] VITALS: BP 141/63; PULSE 69; RESP 16; TEMP 36.4; O2SAT 93
[2022-10-06 07:14] LABS: Add Manual Diff / Slide Review NO; Basophils Absolute Auto 0 /uL (0-100); Basophils Percent Auto 0.2 % (0-2); Eosinophils Absolute Auto 100 /uL (0-450); Eosinophils Percent Auto 0.9 % (2-4); Hemoglobin 13.1 g/dL (13.5-17.5); Lymphocytes Absolute Auto 600 /uL (1100-4500); Lymphocytes Percent Auto 7.6 % (25-40); Mean Corpuscular HGB Conc 34.4 % (30-36); Monocytes Absolute Auto 600 /uL (0-900); Monocytes Percent Auto 6.7 % (3-14); Neutrophils Absolute Auto 7100 /uL (1500-7000); Neutrophils Percent Auto 84.6 % (50-75); Platelet Count 201 X10^3/uL (150-400); Red Blood Cell Count 4.08 X10^6/uL (4.5-5.9); Red Cell Distribution Width 13.6 % (11.6-14.8); White Blood Cell Count 8.4 X10^3/uL (4.5-11.0)
[2022-10-06 07:25] LABS: HEMOLYSIS < 15 (0-50); Potassium 3.9 mmol/L (3.4-5.1)
[2022-10-06 07:26] LABS: BUN Creatinine Ratio 25.4 (6-22); Blood Urea Nitrogen 17 mg/dL (9-20); Calcium 8.4 mg/dL (8.4-10.2); Carbon Dioxide 30 mmol/L (22-32); Chloride 102 mmol/L (98-107); Estimated Glomerular Filt Rate > 60 mL/min (>60); Glucose 113 mg/dL (80-110); Sodium 135 mmol/L (137-145)
[2022-10-06 08:02] VITALS: BP 130/65; PULSE 74; RESP 18; TEMP 37.2; O2SAT 97
[2022-10-06] MEDS: LACTOBACILLUS ACIDOPHILUS TABLET 1 EACH PO (08:29)
[2022-10-06] MEDS: AMLODIPINE 5 MG TABLET 10 MG PO (08:29)
[2022-10-06] MEDS: ASPIRIN EC 81 MG TABLET PO (08:30)
[2022-10-06] MEDS: cefTRIAXone 1,000 MG in SODIUM CHLORIDE 0.9% 100 ML 200 MG IV (08:31)
[2022-10-06] MEDS: AZITHROMYCIN 500 MG in DEXTROSE 5% IN WATER 250 ML 250 MG IV (09:13)
--- NOTE | 2022-10-06 16:28 | P.DS_ITS ---
History of Present Illness History of Present Illness Chief complaint: blood in vomit, high heart rate, sent by [facility] Narrative: 72-year-old gentleman with history of hypertension, hyperlipidemia, palpitations with no clear underlying arrhythmia presented to the emergency department complaining of fevers, chills, and hemoptysis. Patient reports he did notice a ?scratchy throat? a few days ago. He notes he was planning to go camping this weekend but awoke at around midnight yesterday with shaking chills. He states they lasted about an hour. He developed significant diffuse body aches. States he had difficulty sleeping the rest of the night due to his symptoms. He states at approximately 7:00 a.m. yesterday morning he developed hemoptysis. He states he really was not coughing prior but acutely began coughing and got what he described as bright red blood with very little sputum overall. He reports that continued through the day with hemoptysis. He did not note that his sputum was otherwise colored. Took Tylenol around the clock but continued to feel generally poor. He states this morning he continued to have some hemoptysis and ultimately elected to come in to the hospital for further evaluation. 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 Did have some dry heaving today and did not take his antihypertensive medications. He denies any previous history of cardiac disease. In fact, he reports he has had a full cardiac workup. He had episodes of what he describes as ?racing heart?. Was evaluated with what he describes as a nuclear stress test which he states was negative. He states he wore an event monitor for a week with no arrhythmia identified. He believes that he had the workup in the last couple of years. He states that Dr. Rankin told him he did not have to come back for another couple of years for reassessment. Patient did not have any chest pain, tightness, or pressure. No significant shortness of breath. He did have some elevated troponins in the emergency department, but a nonischemic EKG. On arrival to the emergency department, he was initially afebrile, but shortly thereafter his temperature increased to 100.1. Initial heart rate was 121. Respiratory rate was as high as 28. Blood pressures ranged from normotensive up to 180/66. O2 saturations remained in the mid 90s in room air. Laboratories were remarkable for white blood cell count of 17.9 with a 36% bandemia. Troponin initially was 0.062 and increased to 0.074. BNP was elevated at 2160. INR was 1.6. Chemistry panel revealed a sodium of 133, potassium was normal at 3.9, BUN mildly elevated 24, creatinine 0.89, glucose mildly elevated at 158. Total bilirubin 1.8. Blood cultures are drawn and pending. Respiratory viral panel was negative. Chest x-ray revealed a right basilar pneumonia with adjacent pleural effusion. CT pulmonary angiogram was performed which revealed pneumonia of the right middle and lower lobes with a small right-sided pleural effusion. No evidence of PE or right heart strain. Moderate coronary vascular calcifications. Patient was given 2 g of IV Rocephin, 500 mg of IV azithromycin, a single aspirin and admission was recommended. Currently, patient continues to report he is feeling generally ill. No hemop tysis in the last couple of hours. No shortness of breath. He does have a light dinner at bedside and is planning to try to eat some. Discharge Providers Provider Date of admission: 10/05/22 13:25 Discharge Date: 10/06/22 Primary care physician: Carl Watt MD Discharge provider: Brook Hill MD Summary Hospital Course Discharge Diagnosis: 1. Sepsis, resolved 2. Right middle lobe and right lower lobe community-acquired pneumonia with small right pleural effusion 3. Coagulopathy secondary to sepsis, resolved 4. Elevated troponin felt to be demand ischemia, resolved 5. Elevated BNP, felt likely to be secondary to underlying hypertension, no clinical evidence of congestive heart failure 6. Hyperbilirubinemia, secondary to sepsis, resolved 7. Hyperglycemia, prediabetic with a hemoglobin A1c of 5.7% 8. Hypertension Hospital Course: Patient was admitted with sepsis secondary to right middle and lower lobe pn eumonia. He was placed on empiric Rocephin and azithromycin. He had some improvement on the day following admission but subsequently developed hypotension. He required multiple fluid boluses and IV fluids with good resolution. On the date of discharge, he was feeling significantly improved. Blood cultures remain negative. Hemoptysis had resolved. Is encouraged to restart his antihypertensives in staggered fashion as outlined in his discharge orders. Is discharged in stable condition and encouraged follow-up with his primary care provider, Dr. Watt, in [place]. Status at Discharge Cognitive/behavioral status at discharge: at baseline, oriented Overall status at discharge: patient is progressing back to baseline Time Spent with Patient Time spent: Less than 30 minutes Exam Vital Signs (past 8 hours): - 10/06/22 09:00 Oxygen Delivery Method Room Air Oxygen Delivery Method Room Air Oxygen Flow Rate 0 Const Other: GEN:? Mildly Ill-appearing middle-aged male, Alert and oriented x3, NAD HEENT:? Normocephalic, face symmetric CHEST:? Respiratory excursions symmetric, diminished with crackles noted in the right base and mid lung zone, clear on the left CV:? Regular rate and rhythm, no murmurs, rubs, gallops, PMI nondisplaced ABD:? Soft, nontender, nondistended, bowel sounds present in all 4 quadrants, no organomegaly or masses appreciated EXTR:? Warm, well perfused, no clubbing/cyanosis/edema SKIN:? Warm and dry, without rash, pale, NEURO:? Alert and oriented x3, grossly intact Objective Labs 10/06/22 06:30 10/06/22 06:30 Labs: Laboratory Results - last 24 hr 10/04/22 10/06/22 10/06/22 21:20 06:30 06:30 WBC 8.4 RBC 4.08 L Hgb 13.1 L Hct 38.0 L MCV 93.0 MCH 32.0 MCHC 34.4 RDW 13.6 Plt Count 201 Neut % (Auto) 84.6 H Lymph % (Auto) 7.6 L [place] % (Auto) 6.7 Eos % (Auto) 0.9 L Baso % (Auto) 0.2 Neut # (Auto) 7100 H Lymph # (Auto) 600 L [place] # (Auto) 600 Eos # (Auto) 100 Baso # (Auto) 0 Sodium 135 L Potassium 3.9 Chloride 102 Carbon Dioxide 30 BUN 17 Creatinine 0.67 Estimated GFR > 60 BUN/Creatinine Ratio 25.4 H Glucose 113 H Hgb A1c (Ref Lab) 5.7 H Estim Average Glucose 117 Calcium 8.4 PFSH Medical History (Updated 10/04/22 @ 17:30 by Debbi Fox DO) HTN (hypertension) Surgical History Hx of appendectomy Social History household members: spouse Smoking Status: Never smoker alcohol intake: current substance use type: does not use Discharge Plan Discharge Plan Patient Disposition: Home Provider Discharge Comment: You were diagnosed and treated for pneumonia. You will complete a total of 7 days of antibiotics. You have received today's doses, so start the cefdinir tomorrow morning. Continue to use your incentive spirometry. F/u with Dr. Watt next week. Schedule your pneumonia vaccine w/him or at your local pharmacy. For your blood pressure medications: 1) check your blood pressure prior to taking your medications. Call your MD if your systolic blood pressure (top number) is less than 100 or above 160 2) You are getting both amlodipine and felodipine which are the same class of medications. Discontinue felodipine. 3) Continue your amlodipine. 4) Restart your hydrochlorothizide on 10/07 5) Restart your lisinopril on 10/08 6) Restart your clonidine on the evening of 10/08 (sometimes when we hold clonidine, your blood pressure will get very high. If this happens, restart your clonidine RICKY) Return to the ED: Recurrent fevers increasing shortness of breath recurrent bloody sputum increasing pain in your right lower lung with deep breathing inability to hold down food/fluids You may return to work 10/09 at the earliest but this will be up to your (the patient's) discretion based on symptom management. Discharge orders & Medications Prescriptions: New Acidophilus Tablet,Chewable 1 tab PO BID Qty: 30 0RF cefdinir 300 mg capsule 300 mg PO BID Qty: 8 0RF Continued clonidine HCl 0.3 mg tablet 0.3 mg PO BID Patient Comments: TAKE 1 TABLET BY MOUTH TWICE DAILY aspirin 81 mg Tablet,Delayed Release (Dr/Ec) 81 mg PO DAILY hydrochlorothiazide 25 mg tablet 25 mg PO DAILY Patient Comments: TAKE 1 TABLET BY MOUTH ONCE DAILY lisinopril 40 mg tablet 40 mg PO DAILY rosuvastatin 5 mg tablet 5 mg PO QPM amlodipine 10 mg tablet 10 mg PO DAILY Patient Comments: TAKE 1 TABLET BY MOUTH ONCE DAILY Discontinued felodipine 10 mg tablet extended release 24 hr 10 mg PO DAILY Patient Comments: TAKE 1 TABLET BY MOUTH ONCE DAILY Follow up/Referrals: Carl Watt MD [Primary Care Provider] - Diet/Activity/Treatments Diet: Diet as Tolerated and Regular Activity: As tolerated Oxygen: N/A Visit Report/Discharge Packet Instructions: DI for Sepsis -- Adult, Cefdinir Stand Alone Forms: Patient Portal/API, Stroke Signs & Symptoms Discharge Data Primary Care Provider: Carl Watt Discharges patient from system. Discharge Date/Time: 10/06/22 12:00
== END 2022-10-06 12:00 | disposition home or self-care (01) | DRG 871 ==
LOC: ED 17:30 → AC 17:58
PROVIDERS: Admitting Provider Family Medicine; Emergency Provider Emergency Medicine; Family Provider Family Medicine; PCP Internal Medicine; Referring Provider Emergency Medicine; Visit Provider Family Medicine
DX: A41.9 Sepsis, unspecified organism (principal); J18.9 Pneumonia, unspecified organism; J90 Pleural effusion, not elsewhere classified; D68.9 Coagulation defect, unspecified; I24.8 Other forms of acute ischemic heart disease; I10 Essential (primary) hypertension; E87.6 Hypokalemia; R73.03 Prediabetes; I95.9 Hypotension, unspecified; E78.5 Hyperlipidemia, unspecified; Z20.822 Contact with and (suspected) exposure to COVID-19
CPT/HCPCS: 36415; 71045; 71275; 80048; 80053; 80076; 82550; 83036; 83605; 83690; 83735; 83880; 84484; 85007; 85025; 85610; 85730; 87040; 87633; 93005; 93010; 96365; 99285; G0378; J0696; Q9967

== ENCOUNTER → 2023-08-17 12:23 | Day surgery (SDC) | payer OTHER, MEDICARE, SELFPAY ==
[2022-10-04 17:56] VITALS: BMI 27.1
[2023-08-17] VITALS (22 sets, daily range): BP systolic 153–185; BP diastolic 85–105; PULSE 74–142; RESP 12–24; TEMP 37.1–37.3; O2SAT 95–100
--- NOTE | 2023-08-17 12:43 | PM.PREOP ---
Pre-operative Note COVID-19 COVID-19 status: Not tested Interval Note History & Physical reviewed/Exam performed by Physician: Yes Changes to H&P: No ASA Class (for procedural sedation): II
[2023-08-17] MEDS: LACTATED RINGERS 1,000 ML 42 ML IV (12:49)
--- NOTE | 2023-08-17 13:20 | PM.OP.COLON ---
Operative Date/Time/Diagnoses Date of procedure: 08/17/23 Time of procedure: 13:20 Pre-op diagnosis: Positive Cologuard test Post-op diagnosis: same Procedure & Clinicians Study performed: Colonoscopy Same procedure as scheduled: Yes Surgeon: Duc De La Cruz Procedure Notes Procedure in detail: Surgeon: Duc De La Cruz MD Anesthesia: Amanda Eddy CRNA Procedure: The patient was brought to the endoscopy suite, placed in left lateral decubitus position. The patient was connected to monitoring devices. A time-out was performed. Sedation was administered. Once the patient was adequately sedated, a digital rectal exam was performed and was normal. The scope was then inserted and advanced to to the mid sigmoid colon. There was quite a bit of diverticulosis and narrowing of the sigmoid colon which made passage of the scope difficult. The patient then be seen bradycardic and small dose of glycopyrrolate was administered. He then became tachycardic and hypertensive. The decision was made to abort the procedure because of his labile hemodynamics.. He was brought to the recovery room where an EKG was ordered. Scope withdrawal time: Not applicable Sedation time: 17 minutes EBL: 0 Findings: Diverticulosis, incomplete colonoscopy Post-procedure Disposition: PACU
--- NOTE | 2023-08-17 13:56 | SUR.PHASEI ---
Patient had an episode in the endo room with low heartrate. Thhe anesthesia treated im with a small dose of glycopyrate. He then got tachycardic and more hypertensive than his pre op BP. The anesthesia did an EKG and Vagal manavures were done with no decrease in heart rate. Anesthesia administered esmolol and then Metoprolol. Patients most recent VS are back at baseline (pre op) HR 10, BP 170/99, O2 98%, Resp 16. Will continue to monitor patient in phase 1 until anaesthesia returns to check in.
[2023-08-17] MEDS: diphenhydrAMINE 50 MG/ML VIAL (14:16)
[2023-08-17] MEDS: KETOROLAC 30 MG/ML VIAL 15 MG IV (14:23)
[2023-08-17] MEDS: methylPREDNISolone 125 MG/2 ML VIAL IV (14:28)
[2023-08-17] MEDS: LACTATED RINGERS 1,000 ML 100 ML IV (14:45)
--- NOTE | 2023-08-17 14:49 | SUR.PHASEI ---
1215: Patiet verbalized to RN that he feels like he has swelling in his throat. Rn visualized enlarged swollen uvula with blood on the ennd of it. RN called for orders of Benadryl, solumedrol and toradol. Dr Marie came to assess patient at 1435 and ordered an additional EKG. She also visualized his swollen uvula. Patient states it is starting to feel better than it did. Will continue to monitor.
--- NOTE | 2023-08-17 16:01 | P.PN_ITS ---
Subjective Subjective Interval history: during the procedure pt became bradycardic to the 30's. surgeon asked to pull back on the scope while glycopyrolate 0.2 mg was being drawn up and administered. approx 3 minutes later HR increased from 140 to 190's and hypertensive. pt began to vomit small amount of brown thin emesis which was suctioned. decision made to abort the procedure. called PACU to obtain 12 lead ekg stat. in PACU pt remains tachycardic with hypertension, however pt denies CP/SOB/palpitations. 12 lead EKG obtained which shows tachycardia, occasionally irregular but p waves present. attempted vagal manuvers such as blowing through a straw and bearing down while esmolol and metoprolol obtained. at 1335 esmolol 10 mg ivp given. HR lowered to 110's. at 1338 metoprolol 1 mg ivp given. HR 100's. BP returned to pt baseline although hypertensive. asked PACU to continue to monitor patient in the PACU. pt then began c/o sore throat. upon examination swollen uvula noted. give toradol, benadryl and steroids. when patient reevaluated pt admits to new chest tightness this am which was not disclosed to any provider in preop. second EKG obtained which showed sinus tachycardia. decision made to refer patient to ER for closer evaluation. informed through out decision making process. for mo re information please see anesthesia preop post op and introperative records. Exam Vital Signs (past 8 hours): - 08/17/23 12:49 08/17/23 13:22 08/17/23 13:26 Temperature 98.7 F Pulse Rate 108 H 142 H 74 Respiratory Rate 18 22 22 Blood Pressure 185/97 H 169/85 H 160/85 H Pulse Oximetry 99 98 100 Oxygen Delivery Method Room Air Room Air Room Air 08/17/23 13:31 08/17/23 13:36 08/17/23 13:41 Temperature Pulse Rate 133 H 112 H 104 H Respiratory Rate 24 18 18 Blood Pressure 164/105 H 164/97 H 170/103 H Pulse Oximetry 99 100 100 Oxygen Delivery Method Room Air Room Air Room Air 08/17/23 13:46 08/17/23 13:51 08/17/23 13:56 Temperature Pulse Rate 109 H 104 H 101 H Respiratory Rate 22 13 15 Blood Pressure 174/102 H 158/102 H 170/99 H Pulse Oximetry 100 99 98 Oxygen Delivery Method Room Air Room Air Room Air 08/17/23 14:01 08/17/23 14:07 08/17/23 14:16 Temperature Pulse Rate 98 H 111 H 108 H Respiratory Rate 20 14 16 Blood Pressure 158/98 H 164/97 H 183/99 H Pulse Oximetry 98 99 96 Oxygen Delivery Method Room Air Room Air Room Air 08/17/23 14:32 08/17/23 14:37 08/17/23 14:42 Temperature Pulse Rate 105 H 108 H 103 H Respiratory Rate 16 13 13 Blood Pressure 157/98 H 171/100 H 159/96 H Pulse Oximetry 97 98 97 Oxygen Delivery Method Room Air Room Air Room Air 08/17/23 14:46 08/17/23 14:51 08/17/23 14:57 Temperature 99.2 F Pulse Rate 106 H 101 H 98 H Respiratory Rate 16 17 13 Blood Pressure 172/104 H 176/91 H 164/89 H Pulse Oximetry 96 98 96 Oxygen Delivery Method Room Air Room Air Room Air 08/17/23 15:01 08/17/23 15:06 08/17/23 15:11 Temperature Pulse Rate 96 H 96 H 101 H Respiratory Rate 15 17 12 Blood Pressure 160/92 H 153/90 H 153/90 H Pulse Oximetry 95 96 97 Oxygen Delivery Method Room Air Room Air Room Air 08/17/23 15:16 Temperature 99.1 F Pulse Rate 99 H Respiratory Rate 14 Blood Pressure 158/87 H Pulse Oximetry 97 Oxygen Delivery Method Room Air Oxygen Delivery Method Room Air [facility] Medical History Prediabetes Ventricular tachycardia Aortic regurgitation Hyperlipemia Sigmoid diverticulosis HTN (hypertension) Surgical History Hx of appendectomy Social History household members: spouse Smoking Status: Never smoker alcohol intake: current substance use type: does not use
== END | disposition home or self-care (01) ==
PROVIDERS: Family Provider Family Medicine; PCP Internal Medicine; Referring Provider Surgery; Visit Provider Surgery
PROC: 0DJD8ZZ Inspection of Lower Intestinal Tract, Via Natural or Artificial Opening Endoscopic (ICD-10-PCS; CPT 45378; principal; 2023-08-17 13:45)
DX: Z12.11 Encounter for screening for malignant neoplasm of colon (principal); R19.5 Other fecal abnormalities; K57.30 Diverticulosis of large intestine without perforation or abscess without bleeding; R00.1 Bradycardia, unspecified; Z53.09 Procedure and treatment not carried out because of other contraindication; I97.191 Other postprocedural cardiac functional disturbances following other surgery; I97.791 Other intraoperative cardiac functional disturbances during other surgery; I10 Essential (primary) hypertension; R07.89 Other chest pain; K12.2 Cellulitis and abscess of mouth; R00.0 Tachycardia, unspecified; E87.6 Hypokalemia; Z79.899 Other long term (current) drug therapy
CPT/HCPCS: 45378; 36415; 71045; 80053; 82550; 83690; 83735; 83880; 84484; 85025; 85610; 85730; 93005; 96374; 96375; 99284; J1200; J1885; J2704; J2919; J3475

== ENCOUNTER 2023-08-17 15:23 | Emergency (ER) | payer OTHER, MEDICARE, SELFPAY ==
[2022-10-04 17:56] VITALS: BMI 27.1
[2023-08-17] VITALS (15 sets, daily range): BP systolic 147–186; BP diastolic 85–103; PULSE 94–111; RESP 13–26; TEMP 36.6; O2SAT 94–99
--- NOTE | 2023-08-17 15:26 | DI.RAD.S_ITS ---
PROCEDURE: XR CHEST 1V INDICATIONS: chest pain TECHNIQUE: One view of the chest was acquired. COMPARISON: [facility], CR, XR CHEST 1V, 10/04/2022, 12:42. FINDINGS: Surgical changes and devices: None. Lungs and pleura: Mildly low lung volumes. No focal consolidation No pleural effusions or pneumothorax. Mediastinum: Mediastinal contours appear normal. Heart size is normal. Bones and chest wall: No suspicious bony lesions. Overlying soft tissues appear unremarkable. IMPRESSION: No acute cardiopulmonary abnormality is seen. Approved by: Tay Quigley M.D. on 08/17/2023 at 16:12
--- NOTE | 2023-08-17 15:33 | ED.ARRPALP ---
HPI - Arrhythmia/Palpitations <Laurie Jenkins, DO - Last Filed: 08/22/23 01:26> General Chief Complaint: Chest Pain Stated Complaint: From OR/ ST, ST depression/Chest pain Time Seen by Provider: 08/17/23 15:32 Source: patient, RN notes reviewed and old records reviewed Mode of arrival: Wheelchair Limitations: no limitations History of Present Illness HPI narrative: 73-year-old male was in the OR for a colonoscopy after having failed prep on his last 1 in October. Patient has a known underlying atrial rhythm but he states they have never caught the actual rhythm. He does follow with cardiology. Patient during his colonoscopy became bradycardic, then received glycopyrrolate and heart rate went up to the 160s. He received dose of esmolol, 1 mg of metoprolol and heart rate improved into the 1 teens which is where he was when he started. Patient also upon awakening noted that his uvula was swollen. He has had this in the past it was not present prior to the procedure. They note that he was intubated or had an LMA in place for the procedure. Patient states it is improving after having received Toradol as well as IV steroids in the OR. He states prior episode was not provoked by anything received IV steroids in the ER and had improvement that time too. Patient states he feels normal now. He does state he would little bit of chest pain this morning but none after the procedure. Patient is on medications for hypertension, dyslipidemia he has on an aspirin 81 mg daily. States prior appendectomy, no prior cardiac catheterization but has had stress testing in the past when being evaluated for cardiac arrhythmia. No known drug allergies. No tobacco, occasional alcohol, no recreational drugs. Dr. Watt is his primary care. He sees Dr. Rankin for Cardiology. Related Data Home Medications Medication Instructions Recorded Confirmed aspirin 81 mg tablet,delayed 81 mg PO DAILY 10/11/18 08/17/23 release clonidine HCl 0.3 mg tablet 0.3 mg PO BID 10/11/18 08/17/23 hydrochlorothiazide 25 mg tablet 25 mg PO DAILY 10/11/18 08/17/23 lisinopril 40 mg tablet 40 mg PO DAILY 10/11/18 08/17/23 rosuvastatin 5 mg tablet 5 mg PO QPM 10/11/18 08/17/23 amlodipine 10 mg tablet 10 mg PO DAILY 10/04/22 08/17/23 Previous Rx's Medication Instructions Recorded Lactobacillus acidophilus 1 tab PO BID #30 tabs 10/06/22 (Acidophilus chewable tablet) metoprolol succinate 25 mg 12.5 mg (1/2 x 25 mg) PO BID #30 08/17/23 tablet,extended release 24 hr tabs Allergies Allergy/AdvReac Type Severity Reaction Status Date / Time No Known Drug Allergies Allergy Verified 08/17/23 12:39 Review of Systems <Laurie Jenkins DO - Last Filed: 08/22/23 01:26> Review of Systems ROS Unobtainable: All systems reviewed & are unremarkable except as noted in HPI and below Patient History <Laurie Jenkins DO - Last Filed: 08/22/23 01:26> Medical History Prediabetes Ventricular tachycardia Aortic regurgitation Hyperlipemia Sigmoid diverticulosis HTN (hypertension) Surgical History Hx of appendectomy Social History household members: spouse Smoking Status: Never smoker alcohol intake: current substance use type: does not use Smoking Status: Never smoker alcohol intake frequency: a few times a week Substance Use Type: does not use Exam <Laurie Jenkins DO - Last Filed: 08/22/23 01:26> Narrative Exam Narrative: GEN: well nourished, well appearing male, alert and oriented x 3, patient appears to be in mild distress. HEENT: Atraumatic, pupils are equal round reactive to light, extraocular movements are intact, nares are clear, there is no conjunctival pallor. Throat is clear without any exudates, erythema, tonsillar enlargement, patient has enlarged uvula, slightly swollen and erythematous. Patient has normal voice with no difficulty with secretions. He notes that his symptoms are starting to improve and swelling is improved as does not RN delivered him to the ED from PACU. HEART: Slightly tachycardic Regular rate and rhythm without murmur, clicks, rubs. No carotid bruits, pulses are equal in upper and lower extremities LUNGS:Lungs clear to auscultation, no wheezes, rales, crackles, chest moves symmetrically, no tachypnea accessory muscle use ABD:bowel sounds normal, soft, non-tender, no guarding, rebound, rigidity, no masses noted, no hepatosplenomegaly MSCL: Non-tender, no muscle atrophy, muscles strength 5/5 upper and lower extremities, full range of motion. NEURO:CN 2-12 intact, sensation normal Initial Vital Signs Initial Vital Signs: Vital Signs Temperature 97.8 F 08/17/23 15:27 Pulse Rate 111 H 08/17/23 15:27 Respiratory Rate 14 08/17/23 15:27 Blood Pressure 186/94 H 08/17/23 15:27 Pulse Oximetry 99 08/17/23 15:27 Oxygen Delivery Method Room Air 08/17/23 15:27 <Laurie Mills MD - Last Filed: 08/18/23 00:35> Initial Vital Signs Initial Vital Signs: Vital Signs Temperature 97.8 F 08/17/23 15:27 Pulse Rate 111 H 08/17/23 15:27 Respiratory Rate 14 08/17/23 15:27 Blood Pressure 186/94 H 08/17/23 15:27 Pulse Oximetry 99 08/17/23 15:27 Oxygen Delivery Method Room Air 08/17/23 15:27 Course <Laurie Jenkins DO - Last Filed: 08/22/23 01:26> Orders Ordered: Discontinued Medications Magnesium Sulfate (Magnesium Sulfate) 2 gm in 50 mls @ 150 mls/hr IV NOW ONE Stop: 08/17/23 18:31 Last Infusion: 08/17/23 19:18 Dose: Infused Documented By: AJS Co-signed By: SOPHIA Infusion: 08/17/23 18:24 Dose: 50 mls/hr Documented By: NHAN Co-signed By: SOPHIA Admin: 08/17/23 18:20 Dose: 150 mls/hr Documented By: NHAN Co-signed By: SOPHIA Metoprolol Tartrate (Metoprolol Tartrate 5 Mg/5 Ml Inj) 5 mg IV NOW ONE Stop: 08/17/23 18:32 Last Admin: 08/17/23 18:57 Dose: Not Given Documented By: SPF Potassium Chloride (Potassium Chloride 20 Meq Tab) 40 meq PO NOW ONE Stop: 08/17/23 16:54 Last Admin: 08/17/23 17:08 Dose: 40 meq Documented By: NHAN Vital Signs Vital signs: Vital Signs - 8 hr 08/17/23 16:37 08/17/23 16:37 08/17/23 17:00 Pulse Rate 94 H 97 H Respiratory Rate 16 18 Blood Pressure 172/89 H Pulse Oximetry 96 95 Oxygen Delivery Method Room Air 08/17/23 17:01 08/17/23 17:01 08/17/23 17:30 Pulse Rate 100 H 99 H Respiratory Rate 15 15 Blood Pressure 177/92 H Pulse Oximetry 96 96 Oxygen Delivery Method Room Air 08/17/23 17:30 08/17/23 18:00 08/17/23 18:00 Pulse Rate 100 H Respiratory Rate 18 Blood Pressure 173/90 H 170/93 H Pulse Oximetry 94 Oxygen Delivery Method 08/17/23 18:30 08/17/23 18:30 08/17/23 19:00 Pulse Rate 99 H 104 H Respiratory Rate 26 H 22 Blood Pressure 183/99 H Pulse Oximetry Oxygen Delivery Method 08/17/23 19:00 08/17/23 19:13 08/17/23 19:13 Pulse Rate 103 H Respiratory Rate 23 Blood Pressure 184/95 H 177/96 H Pulse Oximetry Oxygen Delivery Method 08/17/23 19:20 Pulse Rate Respiratory Rate 16 Blood Pressure Pulse Oximetry 98 Oxygen Delivery Method Room Air <Laurie Mills MD - Last Filed: 08/18/23 00:35> Orders Ordered: Discontinued Medications Magnesium Sulfate (Magnesium Sulfate) 2 gm in 50 mls @ 150 mls/hr IV NOW ONE Stop: 08/17/23 18:31 Last Infusion: 08/17/23 19:18 Dose: Infused Documented By: JAS Co-signed By: SOPHIA Infusion: 08/17/23 18:24 Dose: 50 mls/hr Documented By: NHAN Co-signed By: SOPHIA Admin: 08/17/23 18:20 Dose: 150 mls/hr Documented By: NHAN Co-signed By: SOPHIA Metoprolol Tartrate (Metoprolol Tartrate 5 Mg/5 Ml Inj) 5 mg IV NOW ONE Stop: 08/17/23 18:32 Last Admin: 08/17/23 18:57 Dose: Not Given Documented By: NHAN Potassium Chloride (Potassium Chloride 20 Meq Tab) 40 meq PO NOW ONE Stop: 08/17/23 16:54 Last Admin: 08/17/23 17:08 Dose: 40 meq Documented By: SPF Vital Signs Vital signs: Vital Signs - 8 hr 08/17/23 16:37 08/17/23 16:37 08/17/23 17:00 Pulse Rate 94 H 97 H Respiratory Rate 16 18 Blood Pressure 172/89 H Pulse Oximetry 96 95 Oxygen Delivery Method Room Air 08/17/23 17:01 08/17/23 17:01 08/17/23 17:30 Pulse Rate 100 H 99 H Respiratory Rate 15 15 Blood Pressure 177/92 H Pulse Oximetry 96 96 Oxygen Delivery Method Room Air 08/17/23 17:30 08/17/23 18:00 08/17/23 18:00 Pulse Rate 100 H Respiratory Rate 18 Blood Pressure 173/90 H 170/93 H Pulse Oximetry 94 Oxygen Delivery Method 08/17/23 18:30 08/17/23 18:30 08/17/23 19:00 Pulse Rate 99 H 104 H Respiratory Rate 26 H 22 Blood Pressure 183/99 H Pulse Oximetry Oxygen Delivery Method 08/17/23 19:00 08/17/23 19:13 08/17/23 19:13 Pulse Rate 103 H Respiratory Rate 23 Blood Pressure 184/95 H 177/96 H Pulse Oximetry Oxygen Delivery Method 08/17/23 19:20 Pulse Rate Respiratory Rate 16 Blood Pressure Pulse Oximetry 98 Oxygen Delivery Method Room Air MDM - Arrhythmia/Palpitations <Laurie Jenkins, - Last Filed: 08/22/23 01:26> Lab Data 08/17/23 15:50 08/17/23 15:50 Labs: Lab Results 08/17/23 08/17/23 Range/Units 15:50 17:55 WBC 7.6 (4.5-11.0) X10^3/uL RBC 5.09 (4.5-5.9) X10^6/uL Hgb 16.0 (13.5-17.5) g/dL Hct 46.8 (41-53) % MCV 92.0 (80-100) fL MCH 31.4 (26-34) PG MCHC 34.1 (30-36) % RDW 14.2 (11.6-14.8) % Plt Count 224 (150-400) X10^3/uL Neut % (Auto) 88.7 H (50-75) % Lymph % (Auto) 7.2 L (25-40) % [place] % (Auto) 3.5 (3-14) % Eos % (Auto) 0.4 L (2-4) % Baso % (Auto) 0.2 (0-2) % Neut # (Auto) 6800 (8533-4248) /uL Lymph # (Auto) 500 L (3243-1796) /uL [place] # (Auto) 300 (0-900) /uL Eos # (Auto) 0 (0-450) /uL Baso # (Auto) 0 (0-100) /uL PT 12.3 (9.4-12.5) SECONDS INR 1.1 (0.9-1.3) APTT 34 (25.1-36.5) SECONDS Sodium 138 (137-145) mmol/L Potassium 2.9 L (3.4-5.1) mmol/L Chloride 103 (98-107) mmol/L Carbon Dioxide 27 (22-32) mmol/L BUN 8 L (9-20) mg/dL Creatinine 0.53 L (0.66-1.25) mg/dL Estimated GFR > 60 (>60) mL/min BUN/Creatinine Ratio 15.1 (6-22) Glucose 145 H (80-110) mg/dL Calcium 9.3 (8.4-10.2) mg/dL Magnesium 1.7 (1.6-2.3) mg/dL Total Bilirubin 1.0 (0.2-1.3) mg/dL AST 37 (17-59) IU/L ALT 33 (<50) IU/L Alkaline Phosphatase 74 (38-126) U/L Total Creatine Kinase 114 (55-170) U/L Troponin I 0.018 0.019 (0.01-0.034) ng/mL NT-Pro-B Natriuret Pep 141 H (<125) pg/mL Total Protein 7.9 (6.3-8.2) g/dL Albumin 4.8 (3.5-5.0) g/dL Globulin 3.1 (1.7-4.1) g/dL Albumin/Globulin Ratio 1.5 (1.0-2.8) Lipase 30 (23-300) U/L ECG Data Attestation: I personally reviewed and interpreted this ECG as follows: Interpretation: Tachycardic appears to be atrial rhythm is somewhat irregular rate of 145 OR 154 QRS is [address] changes. Patient does appear to have a P wave with every QRS although difficult to tell. Maybe atrial fibrillation. EKG 2. Shows sinus tach with a rate of 102 OR 162 QRS 82 QTC 4 some 4. Patient has a occasional PAC but does appear to have a P wave with every QRS despite some irregularity. Nonspecific change. MDM Narrative Medical decision making narrative: 73-year-old male who became bradycardic during his colonoscopy received glycopyrrolate and then had immediate tachycardia up into the 160s rhythm strip appeared to be SVT, patient on EKGs was your regular initial not clear P waves with every QRS but on repeat 102 does appear to be in a sinus rhythm with PACs. Patient also developed some swelling of his uvula during or post procedure. He received medications for his tachycardia as well as his uvulitis in the OR in his had improvement of both. labs: 13 when white count 7.6 hemoglobin of 16 platelets of 224. Potassium 2.9 which was replaced orally, creatinine 0.53, electrolytes are otherwise normal, glucose is 145 LFTs are negative initial troponins negative, BNP is 141. Chest x-ray no acute changes. EKG did show some irregularity might be PACs but could be AFib, repeat shows sinus tach. Patient tele strip from the OR appears to be SVT but occasional irregular beat. Patient does follow with cardiology he states there has been discussion about AFib in the past. He does not wish to start anticoagulation and has had proximal issues likely exacerbated by his 2 day colonoscopy prep and low potassium. His uvula continues to improve after steroid and does not need further intervention at this time. Patient has repeat troponin pending. Signed out to Dr. Mills while awaiting states swelling for his uvula has continued to improve. Dr. Mills -care of patient is signed out to me by Dr. Jenkins at 1800. Patient reassessed, resting comfortably in bed, states that his uvula swelling has resolved and denying any chest pain. 2 hour troponin negative. Patient's case discussed with his battery vent plug inserter Dr. Rankin. He reviewed the patient's labs and case and states that his elevated heart rate was likely due to the medications given during surgery. He states that patient has a history of nonsustained ventricular tachycardia that is well monitored. Patient has taken excellent control of his health over the last few years and has managed to improve his health through diet, exercise, medication compliance. Patient has an upcoming appointment with him next week and he will follow up with him at that time. I questioned if patient should be on a low-dose beta-hoa, Dr. Rankin stated that patient could be placed on low dose, 12.5 mg metoprolol twice daily. Patient and informed of all lab and imaging findings as well as cardiology recommendations. They are eager to go home and we will make sure that they keep their cardiology appointment. <Laurie Mills MD - Last Filed: 08/18/23 00:35> Lab Data Labs: Lab Results 08/17/23 08/17/23 Range/Units 15:50 17:55 WBC 7.6 (4.5-11.0) X10^3/uL RBC 5.09 (4.5-5.9) X10^6/uL Hgb 16.0 (13.5-17.5) g/dL Hct 46.8 (41-53) % MCV 92.0 (80-100) fL MCH 31.4 (26-34) PG MCHC 34.1 (30-36) % RDW 14.2 (11.6-14.8) % Plt Count 224 (150-400) X10^3/uL Neut % (Auto) 88.7 H (50-75) % Lymph % (Auto) 7.2 L (25-40) % [place] % (Auto) 3.5 (3-14) % Eos % (Auto) 0.4 L (2-4) % Baso % (Auto) 0.2 (0-2) % Neut # (Auto) 6800 (1455-1945) /uL Lymph # (Auto) 500 L (0095-2251) /uL [place] # (Auto) 300 (0-900) /uL Eos # (Auto) 0 (0-450) /uL Baso # (Auto) 0 (0-100) /uL PT 12.3 (9.4-12.5) SECONDS INR 1.1 (0.9-1.3) APTT 34 (25.1-36.5) SECONDS Sodium 138 (137-145) mmol/L Potassium 2.9 L (3.4-5.1) mmol/L Chloride 103 (98-107) mmol/L Carbon Dioxide 27 (22-32) mmol/L BUN 8 L (9-20) mg/dL Creatinine 0.53 L (0.66-1.25) mg/dL Estimated GFR > 60 (>60) mL/min BUN/Creatinine Ratio 15.1 (6-22) Glucose 145 H (80-110) mg/dL Calcium 9.3 (8.4-10.2) mg/dL Magnesium 1.7 (1.6-2.3) mg/dL Total Bilirubin 1.0 (0.2-1.3) mg/dL AST 37 (17-59) IU/L ALT 33 (<50) IU/L Alkaline Phosphatase 74 (38-126) U/L Total Creatine Kinase 114 (55-170) U/L Troponin I 0.018 0.019 (0.01-0.034) ng/mL NT-Pro-B Natriuret Pep 141 H (<125) pg/mL Total Protein 7.9 (6.3-8.2) g/dL Albumin 4.8 (3.5-5.0) g/dL Globulin 3.1 (1.7-4.1) g/dL Albumin/Globulin Ratio 1.5 (1.0-2.8) Lipase 30 (23-300) U/L [facility] Narrative Medical decision making narrative: 73-year-old male who became bradycardic during his colonoscopy received glycopyrrolate and then had immediate tachycardia up into the 160s rhythm strip appeared to be SVT, patient on EKGs was your regular initial not clear P waves with every QRS but on repeat 102 does appear to be in a sinus rhythm with PACs. Patient also developed some swelling of his uvula during or post procedure. He received medications for his tachycardia as well as his uvulitis in the OR in his had improvement of both. labs: 13 when white count 7.6 hemoglobin of 16 platelets of 224. Potassium 2.9, creatinine 0.53, electrolytes are otherwise normal, glucose is 145 LFTs are negative initial troponins negative, BNP is 141. Chest x-ray no acute changes. EKG did show some irregularity might be PACs but could be AFib, repeat shows sinus tach. Patient tele strip from the OR appears to be SVT but occasional irregular beat. Patient does follow with cardiology he states there has been discussion about AFib in the past. He does not wish to start anticoagulation and has had proximal issues likely exacerbated by his 2 day colonoscopy prep and low potassium. His uvula continues to improve after steroid and does not need further intervention at this time. Dr. Mills -care of patient is signed out to me by Dr. Jenkins at 1800. Patient reassessed, resting comfortably in bed, states that his uvula swelling has resolved and denying any chest pain. 2 hour troponin negative. Patient's case discussed with his battery vent plug inserter Dr. Rankin. He reviewed the patient's labs and case and states that his elevated heart rate was likely due to the medications given during surgery. He states that patient has a history of nonsustained ventricular tachycardia that is well monitored. Patient has taken excellent control of his health over the last few years and has managed to improve his health through diet, exercise, medication compliance. Patient has an upcoming appointment with him next week and he will follow up with him at that time. I questioned if patient should be on a low-dose beta-hoa, Dr. Rankin stated that patient could be placed on low dose, 12.5 mg metoprolol twice daily. Patient and informed of all lab and imaging findings as well as cardiology recommendations. They are eager to go home and we will make sure that they keep their cardiology appointment. Discharge Plan Departure Patient Disposition: Home Clinical Impression: Uvulitis, Tachycardia, Hypokalemia Instructions: DI for Chest Pain Activity Restrictions/Additional Instructions: Follow up with your battery vent plug inserter, take the EKGs from today to your appointment to share with them. He recommends starting 12.5mg of metoprolol twice daily. You were low on your potassium, please have your labs rechecked this week to make sure that it is continuing to improve. Your likely low secondary to all the diarrhea from your colonoscopy prep. Please return for new or worsening symptoms, new chest pain, persistently fast or irregular heart rate, new swelling in extremities, shortness of breath, increasing swelling of the uvula or other new or concerning changes. Prescriptions: New metoprolol succinate 25 mg tablet extended release 24 hr 12.5 mg PO BID Qty: 30 0RF No Action clonidine HCl 0.3 mg tablet 0.3 mg PO BID Patient Comments: TAKE 1 TABLET BY MOUTH TWICE DAILY aspirin 81 mg Tablet,Delayed Release (Dr/Ec) 81 mg PO DAILY hydrochlorothiazide 25 mg tablet 25 mg PO DAILY Patient Comments: TAKE 1 TABLET BY MOUTH ONCE DAILY lisinopril 40 mg tablet 40 mg PO DAILY rosuvastatin 5 mg tablet 5 mg PO QPM amlodipine 10 mg tablet 10 mg PO DAILY Patient Comments: TAKE 1 TABLET BY MOUTH ONCE DAILY Acidophilus Tablet,Chewable 1 tab PO BID Qty: 30 0RF Referrals: Carl Watt MD [Primary Care Provider] - Stand Alone Forms: Patient Portal/API
--- NOTE | 2023-08-17 15:40 | PC.NURSE ---
Pt reports throat is feeling less swollen in his throat than post op, denies feeling like his airway is getting worse, denies chest pain or shortness of breath. Pt's is at bedside.
[2023-08-17 16:00] LABS: Add Manual Diff / Slide Review NO; Basophils Absolute Auto 0 /uL (0-100); Basophils Percent Auto 0.2 % (0-2); Eosinophils Absolute Auto 0 /uL (0-450); Eosinophils Percent Auto 0.4 % (2-4); Hematocrit 46.8 % (41-53); Lymphocytes Absolute Auto 500 /uL (1100-4500); Lymphocytes Percent Auto 7.2 % (25-40); Mean Corpuscular HGB Conc 34.1 % (30-36); Mean Corpuscular Hemoglobin 31.4 PG (26-34); Monocytes Absolute Auto 300 /uL (0-900); Monocytes Percent Auto 3.5 % (3-14); Neutrophils Absolute Auto 6800 /uL (1500-7000); Neutrophils Percent Auto 88.7 % (50-75); Platelet Count 224 X10^3/uL (150-400); Red Blood Cell Count 5.09 X10^6/uL (4.5-5.9); Red Cell Distribution Width 14.2 % (11.6-14.8); White Blood Cell Count 7.6 X10^3/uL (4.5-11.0)
[2023-08-17 16:09] LABS: INR 1.1 (0.9-1.3); Prothrombin Time 12.3 SECONDS (9.4-12.5)
[2023-08-17 16:11] LABS: PTT Partial Thromboplastin Tim 34 SECONDS (25.1-36.5)
[2023-08-17 16:14] LABS: HEMOLYSIS 25 (0-50); Potassium 2.9 mmol/L (3.4-5.1)
[2023-08-17 16:15] LABS: Alanine Aminotransferase 33 IU/L (<50); Albumin 4.8 g/dL (3.5-5.0); Albumin Globulin Ratio 1.5 (1.0-2.8); Alkaline Phosphatase 74 U/L (38-126); Aspartate Aminotransferase 37 IU/L (17-59); BUN Creatinine Ratio 15.1 (6-22); Blood Urea Nitrogen 8 mg/dL (9-20); Calcium 9.3 mg/dL (8.4-10.2); Carbon Dioxide 27 mmol/L (22-32); Chloride 103 mmol/L (98-107); Creatine Kinase 114 U/L (55-170); Estimated Glomerular Filt Rate > 60 mL/min (>60); Globulin 3.1 g/dL (1.7-4.1); Glucose 145 mg/dL (80-110); Lipase 30 U/L (23-300); Magnesium 1.7 mg/dL (1.6-2.3); Sodium 138 mmol/L (137-145); Total Protein 7.9 g/dL (6.3-8.2)
[2023-08-17 16:23] LABS: NT-proBNP (BNP-Adult 18+) 141 pg/mL (<125)
[2023-08-17 16:26] LABS: Troponin I 0.018 ng/mL (0.01-0.034)
[2023-08-17] MEDS: POTASSIUM CHLORIDE 20 MEQ TAB 40 MEQ PO (17:08)
[2023-08-17] MEDS: MAGNESIUM SULFATE 2 GM/50 ML PIGGYBACK IV (18:20)
[2023-08-17 18:30] LABS: Troponin I 0.019 ng/mL (0.01-0.034)
== END 2023-08-17 19:15 | disposition home or self-care (01) ==
PROVIDERS: Emergency Medicine; Emergency Provider Emergency Medicine; Family Provider Family Medicine; PCP Internal Medicine
DX: K12.2 Cellulitis and abscess of mouth (principal); R00.0 Tachycardia, unspecified; E87.6 Hypokalemia; Z79.899 Other long term (current) drug therapy
CPT/HCPCS: 36415; 71045; 80053; 82550; 83690; 83735; 83880; 84484; 85025; 85610; 85730; 93005; J1200; J1885; J2704; J2919; J3475

== ENCOUNTER → 2024-07-27 06:51 | Outpatient (CLI) | payer OTHER, MEDICARE, SELFPAY ==
[2022-10-04 17:56] VITALS: BMI 27.1
--- NOTE | 2024-07-27 06:54 | DI.ECHO.S_ITS ---
[place] [facility]---------+ [facility] : : [address] : : [place] : : [id number] : : Phone: [phone] Echocardiogram Report + + :Name: DENY MERCEDES Study Date: 07/27/2024 Height: 71 in : :[facility] ReadingLocation: Weight: 215 lb : : Gender: Male BSA: 2.2 m2 : :: 1950 Age: 73 yrs BP: 123/93 mmHg: :Reason For Study: AORTIC VALVE INSUFFICIENCY : :Ordering Physician: STEPHAN, : :EDOUARD Performed By: Robyn Velez : :Referring: EDOUARD RANKIN : + + Interpretation Summary 1) Normal left vventricular size and thickness with severely reduced systolic function (EF 25-30%). 2) Mildly enlarged right ventricle with low normal function. 3) The left atrium is severely dilated. 4) There is mild to moderate aortic regurgitation. 5) Atrial fibrillation with ventricular rates in the 94-127bpm range present during the study. 6) Compared to the Echo done 10/15/2020, LVEF has decreased from normal to severely reduced on this study. Procedure: A two-dimensional transthoracic echocardiogram with color flow and Doppler was performed. The study quality was technically adequate. Comparison is made with the echocardiogram of 10/15/2020. The patient had occasional PVCs during the exam. The patient was in atrial fibrillation with heart rates between 94-127 bpm during the exam. Left Ventricle: The left ventricle is normal in size and wall thickness. The ejection fraction is estimated to be 25-30%. There is severe global hypokinesis of the left ventricle. Diastolic function could not be accurately assessed due to atrial fibrillation. Right Ventricle: The right ventricle is mildly dilated. Right ventricular systolic function is at the lower limits of normal. Atria: The left atrium is severely dilated. The right atrium is mildly dilated. There is no Doppler evidence for an interatrial shunt. Mitral Valve: The mitral valve leaflets appear mildly thickened, but open well. There is mild mitral annular calcification. There is mild mitral regurgitation. Aortic Valve: The aortic valve is trileaflet. The aortic valve opens well. There is no aortic valve stenosis. There is mild to moderate aortic regurgitation. Tricuspid Valve: The tricuspid valve leaflets are thin and pliable. There is mild tricuspid regurgitation. Right ventricular systolic pressure is estimated to be 20 mmHg plus the clinically estimated CVP which cannot be estimated on this exam. Pulmonic Valve: The pulmonic valve leaflets are thin and pliable; valve motion is normal. There is no pulmonic valvular regurgitation. Great Vessels: The aortic root is normal size. The dimensions of the ascending aorta are normal. The inferior vena cava was not well visualized. Pericardium/ Pleura There is no pericardial effusion. There is no pleural effusion. MMode/2D Measurements & Calculations LVIDd: 5.4 cm LVOT diam: 2.2 cm LVIDs: 4.8 cm Ao root diam: 3.4 cm FS: 11.8 % asc Aorta Diam: 3.7 cm EPSS: 1.3 cm Ao Arch Diam (Prox Trans): 3.6 cm IVSd: 0.98 cm LVPWd: 0.88 cm LV lovelace. diameter/BSA (cm/m^2): 2.5 LV sys. diameter/BSA (cm/m^2): 2.2 LA dimension: 6.7 cm RA long axis: 5.7 cm LA A2 area: 30.8 cm2 RA area: 23.0 cm2 LA A4 area: 31.0 cm2 RA vol: 78.4 ml LA length (vol): 6.8 cm RA : 36.1 ml/m2 LA vol: 119.2 ml LA vol index: 54.8 ml/m2 RVD1 (basal): 4.3 cm RVD2 (mid): 2.8 cm TAPSE: 1.7 cm Doppler Measurements & Calculations Ao V2 max: 136.6 cm/sec LVOT Max Blair: 83.2 cm/sec Ao V2 mean: 100.1 cm/sec LV V1 max P.8 mmHg Ao max P.5 mmHg LV V1 VTI: 15.8 cm Ao mean P.4 mmHg LEOPOLDO(I,D): 2.2 cm2 Ao V2 VTI: 27.6 cm LEOPOLDO(V,D): 2.3 cm2 sev ratio: 0.57 LEOPOLDO indexed to BSA (cm^2/m^2): 0.99 AI P1/2t: 496.8 msec AI dec slope: 241.4 cm/sec2 MV E max blair: 123.5 cm/sec TR max blair: 221.3 cm/sec MV A max blair: 1.3 cm/sec TR max P.6 mmHg MV E/A: 96.5 PA V2 max: 110.5 cm/sec Med Peak E' Blair: 6.4 cm/sec PA V2 mean: 78.1 cm/sec E/E' med: 19.4 PA mean P.7 mmHg Lat Peak E' Blair: 8.9 cm/sec PA pr(Accel): 43.0 mmHg E/E' lat: 13.8 E/e' average: 16.6 MV dec time: 0.16 sec MR ERO: 0.14 cm2 MR PISA: 1.5 cm2 SV(LVOT): 59.7 ml MR flow rate: 63.6 cm3/sec MR PISA radius: 0.49 cm Reading Physician:09:46 AM
== END ==
PROVIDERS: Family Provider Family Medicine; PCP Internal Medicine; Referring Provider Internal Medicine Cardiovascular Disease; Visit Provider Internal Medicine Cardiovascular Disease
DX: I08.3 Combined rheumatic disorders of mitral, aortic and tricuspid valves (principal)
CPT/HCPCS: 93306